=== PATIENT | female | born 1930 | race Caucasian/White ===

== ENCOUNTER 2016-07-19 05:59 | Day surgery (SDC) | payer MEDICARE ==
[~2016-07-19] VITALS: Ht 152.4 cm; Wt 60.9 kg
[~2016-07-19 05:59] MED LIST: APIX2.5T PO; ATOR20TA15 PO; BUME1TAB PO; CARV6.25 PO; DILT120C9 PO; FURO40TA PO; IMIP10 PO; LACTCAP8 PO; LISI-519 PO; MAGN400T2 PO; METO2.5T PO; NEXI20CA PO; POTA10CA PO
[2016-07-19 06:45] VITALS: BP 164/85; PULSE 72; RESP 20; TEMP 97.6; O2SAT 95
[2016-07-19] MEDS ORDERED: CARV6.252 PO (06:45)
[2016-07-19] MEDS ORDERED: SODIUM CHLORIDE 0.9% 1000 ML IV SCH (07:00)
[2016-07-19] MEDS ORDERED: ceFAZolin 2 GM PREMIX 50 ML - implanted port removal IV SCH (07:00)
[2016-07-19 07:32] LABS: AUTOMATED NEUTROPHIL # 2.9 TH/MM3 (1.8-7.7); BASOPHIL % 0.7 % (0.0-2.0); EOSINOPHIL # 0.2 TH/MM3 (0-0.4); EOSINOPHIL % 3.5 % (0.0-4.0); HEMATOCRIT 36.7 % (35.0-46.0); HEMO FLAGS DIFF FINAL; LYMPH % 28.3 % (9.0-44.0); LYMPHOCYTE # 1.6 TH/MM3 (1.0-4.8); MEAN CELL VOLUME 87.2 FL (80.0-100.0); MEAN CORPUSCULAR HEMOGLOBIN 29.7 PG (27.0-34.0); MEAN CORPUSCULAR HGB CONC 34.1 % (32.0-36.0); NEUT % 51.5 % (16.0-70.0); PLATELET COUNT 177 TH/MM3 (150-450); RED BLOOD COUNT 4.21 MIL/MM3 (4.00-5.30); RED CELL DISTRIBUTION WIDTH 13.6 % (11.6-17.2); WHITE BLOOD COUNT 5.7 TH/MM3 (4.0-11.0)
[2016-07-19 08:16] LABS: INTERNATIONAL NORMALIZED RATIO 0.9 RATIO; PROTHROMBIN TIME - PATIENT 10.4 SEC (9.8-11.6)
[2016-07-19 08:17] LABS: APTT (PATIENT) 23.6 SEC (24.3-30.1)
[2016-07-19] MEDS ORDERED: LIDOCAINE 1%/EPINEPHrine 1:100,000 SOLN 20 ML VIAL ONE (08:26)
[2016-07-19] MEDS ORDERED: MIDAZOLAM HCL 5 MG/5 ML VIAL ONE (08:32)
[2016-07-19] MEDS ORDERED: fentaNYL CITRATE 250 MCG/5 ML AMP ONE (08:32)
--- NOTE | 2016-07-19 08:59 | PD.RAD ---
Post Procedure Progress Note Pre Procedure Diagnosis: (1) Cardiomyopathy Post Procedure Diagnosis: (1) Cardiomyopathy Procedure Date: Jul 19, 2016 Supervising Radiologist: Ronak Interiano Proceduralist/Assist: Paola Hollins RT(R), RT Yoanthan(R)() Anesthesia: Conscious Sedation Plan of Activity Patient to Unit: PACU See PACS Report for procedural detail/treatment Central Venous Access Device Procedure 1 Right Internal Jugular Infusaport Removal single lumen Ronak Interiano MD Jul 19, 2016 08:59
[2016-07-19 09:00] VITALS: BP 115/66; PULSE 53; RESP 20; TEMP 97.9; O2SAT 97
[2016-07-19] MEDS ORDERED: SODIUM CHLORIDE 0.9% FLUSH 5 ML FLUSH IVF PRN (09:00)
[2016-07-19 09:15] VITALS: BP 122/65; PULSE 69; RESP 20; O2SAT 96
--- NOTE | 2016-07-19 09:23 | RADRPT ---
EXAM DATE/TIME: 07/19/2016 07:36 [facility] COMPARISON: No previous studies available for comparison. INDICATIONS : Patient with history of Hodgkin's lymphoma in need of port removal. MEDICAL HISTORY : 1.CHF 2.AFIB 3.HTN 4.Diverticulosis 5.Lymphoma 6.Sleep apnea 7.GERD 8.Arthritis 9.Osteoporosis SURGICAL HISTORY : 1.Cataract Surgery 2.Cardiac stent 3.Colostomy 4.Right hip replacement 5.Left hip replacement 6.Cholectomy ENCOUNTER: Initial ACUITY: > 1 year PAIN SCORE: 0/10 SEDATION TIME: 30 minutes 1.) 3 mg midazolam (Versed) IV 2.) 150 mcg fentanyl (Sublimaze) IV Prophylactic antibiotics were administered with appropriate pre-procedure timing. Vancomycin within 2 hrs of procedure, Ancef (or alternative) within 1 hr of procedure. PROCEDURE : 1. Removal of Gmhkpe-g-voib. 2. Conscious sedation with continuous EKG and oximetry monitoring. The risk, benefits and potential complications of Ijoxja-h-Kpni removal were discussed. Written conse nt was obtained. The patient was placed supine. The chest wall was prepped in sterile fashion. Full sterile techniqu e was used, including cap, mask, sterile gloves and gown, and a large sterile sheet. Hand hygiene an d 2% chlorhexidine and/or Betadine/alcohol prep was utilized per protocol for cutaneous antisepsis. The skin and subcutaneous tissues were infiltrated with local anesthetic solution. A small incision w as made, the subcutaneous pocket was opened. The port was dissected from the subcutaneous tissues and easily removed in one piece. The pocket incision was closed with subcuticular Vicryl suture. Steri -Strips were applied. Conscious sedation was performed with the prescribed dosages and duration as above. The patient tole rated the procedure well and there were no complications. EKG and oximetry remained stable throughou t the procedure. The patient was sent to post anesthesia recovery in stable condition. CONCLUSION: Uncomplicated port removal as above. Ronak Interiano MD on July 19, 2016 at 9:22 Board Certified Radiologist. This report was verified electronically.
[2016-07-19 09:45] VITALS: BP 113/62; PULSE 61; RESP 20; O2SAT 96
[2016-07-19 10:15] VITALS: BP 116/73; PULSE 61; RESP 20; O2SAT 95
== END 2016-07-19 11:20 | disposition home or self-care (01) ==
LOC: HROP 05:59 → HRIP 06:37 → HROP 11:20
PROVIDERS: ATTEND Internal Medicine Hematology & Oncology
DX: Z45.2 Encounter for adjustment and management of vascular access device (principal); I11.0 Hypertensive heart disease with heart failure; I50.9 Heart failure, unspecified; Z85.71 Personal history of Hodgkin lymphoma
CPT/HCPCS: 36590; 85025; 85610; 85730; 99152; 99153; J0690; J2250; J3010; J7030

== ENCOUNTER 2016-08-27 08:12 | Day surgery (SDC) | payer MEDICARE ==
[~2016-08-27 08:12] MED LIST changes: -CARV6.25 PO; +CARV6.252 PO
[2016-08-27 08:43] VITALS: BP 130/73; PULSE 68; RESP 20; TEMP 97.9; O2SAT 95
--- NOTE | 2016-08-27 16:48 | RADRPT ---
EXAM DATE/TIME: 08/27/2016 00:00 [facility] COMPARISON : No previous studies available for comparison. INDICATIONS : S/P PORT REMOVAL, SITE CHECK OBJECTIVE: Temperature: 97.9 Heart Rate: 68 Blood Pressure: 130/73 Respiratory: 20 Oximetry: 95 PNEUMONIA VACCINE: HISTORY OF PRESENT ILLNESS: 86-year-old female who had her port removed July 19. Reports drainage. Denies fever and chills. PAST MEDICAL HISTORY : 1. Osteoarthritis. 2. Congestive heart failure. 3. Hypercholesterolemia. 4. Gastroesophageal reflux disease. 5. Cardiovascular disease. 6. Hypertension. 7. AFIB PAST SURGICAL HISTORY : 1. Cholecystectomy. 2. Coronary artery stent. 3. Appendectomy. 4. COLOSTOMY 5. DEVONTE HIP REPLACE SOCIAL HISTORY : ALLERGIES: Cipro 1. Eliquis (Apixaban) 2.5 mg b.i.d. 2. Coreg (Carvedilol) 6.25 mg b.i.d. 3. DILTIAZEM 120 mg q.d. 4. ATORVASTATIN 20 mg q.d. 5. Lasix (Furosemide)40 mg q.d. 6. Prinivil (Lisinopril)5 mg q.d. PHYSICAL EXAMINATION: General: Patient is sitting comfortably. In no acute distress. Chest: There is erythema surrounding the incision site from the port removal. The wound is approximated. No mass. Compression on the site generates a small discharge purulent material from the lateral margin o f the incision site. ASSESSMENT: Infection at the port removal site. PLAN: The patient was given a prescription for oral Keflex. She was instructed to start the antibiotic toda y. She'll return on Tuesday for a repeat site check. She was instructed to call sooner if any issue s arise. TIME SPENT: <15 minutes Christian Silva Jr., MD on August 27, 2016 at 16:37 Board Certified Radiologist. This report was verified electronically.
== END 2016-08-27 08:55 | disposition home or self-care (01) ==
LOC: HROP 08:12 → HRIP 08:16 → HROP 08:55
PROVIDERS: ATTEND Internal Medicine Hematology & Oncology
DX: Z45.2 Encounter for adjustment and management of vascular access device (principal)
CPT/HCPCS: 99212; G0463

== ENCOUNTER 2016-09-01 08:39 | Day surgery (SDC) | payer MEDICARE ==
[2016-09-01 08:59] VITALS: BP 119/70; PULSE 49; RESP 20; TEMP 97.5; O2SAT 94
== END 2016-09-01 09:15 | disposition home or self-care (01) ==
LOC: HROP 08:39 → HRIP 08:43 → HROP 09:15
PROVIDERS: ATTEND Radiology Body Imaging
DX: Z45.2 Encounter for adjustment and management of vascular access device (principal)
CPT/HCPCS: 99211; G0463

== ENCOUNTER 2017-02-22 07:28 | Inpatient (IN) | payer MEDICARE ==
[~2017-02-22] VITALS: Ht 152.4 cm; Wt 65.3 kg
[2017-02-22] VITALS (11 sets, daily range): BP systolic 124–174; BP diastolic 79–100; PULSE 85–147; RESP 20–46; TEMP 92–98.3; O2SAT 88–95
--- NOTE | 2017-02-22 07:41 | PD ---
HPI Chief Complaint: Respiratory Symptoms Time Seen by Provider: 07:35 Travel History International Travel<30 days: No Contact w/Intl Traveler<30days: No Traveled to known affect area: No History of Present Illness HPI 86yo F with PMH of lymphoma s/p treatment cancer free since 2014, afib on eliquis, CHF here with c/o sob since this morning. She also felt a little chest pain along with her sob that is midsternal and nonradiating. +Cough. Denies any fever, n/v, abdominal pain, focal weakness or numbness. Pt was taken off oral diltiazem because her blood pressure was low. [employer] is Dr. Duong. [facility] Past Medical History Hx Anticoagulant Therapy: Yes (ELIQUIS, ) Arthritis: Yes Asthma: No Atrial Fibrillation: Yes Heart Rhythm Problems: Yes (A-fib) Cancer: Yes (LYMPHOMA ) Cardiovascular Problems: Yes (HYPOTENSION, A-FIB, CHF ) High Cholesterol: Yes Chemotherapy: Yes (2015; [facility]) Chest Pain: Yes Congestive Heart Failure: Yes Diabetes: No Endocrine: No Gastrointestinal Disorders: Yes (COLOSTOMY, DIVERTICULOSIS) GERD: Yes Genitourinary: No Hiatal Hernia: No Hypertension: Yes Immune Disorder: No Musculoskeletal: Yes Neurologic: No Psychiatric: No Reproductive: No Respiratory: Yes Immunizations Current: Yes Radiation Therapy: No Sleep Apnea: Yes Thyroid Disease: No Ulcer: No Past Surgical History Abdominal Surgery: Yes (COLECTOMY, COLOSTOMY, APPY CHOLECYSTECTOMY) AICD: No Cardiac Surgery: Yes (CARDIAC STENTS PLACED) Ear Surgery: No Endocrine Surgery: No Eye Surgery: Yes (CATARACT SURGERY) Genitourinary Surgery: No Gynecologic Surgery: No Joint Replacement: Yes (RIGHT HIP REPLACEMENT X 4, LEFT HIP X 1) Oral Surgery: No Pacemaker: No Thoracic Surgery: No Other Surgery: Yes (POWER PORT) Social History Alcohol Use: No Tobacco Use: No Substance Use: No Allergies-Medications (Allergen,Severity, Reaction): Coded Allergies: ciprofloxacin (Unverified Allergy, Severe, HALLUCINATIONS, 02/22/17) *MDRO Multi-Drug Resistant Organism (Verified Adverse Reaction, Unknown, ) 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 Reported Meds & Prescriptions Reported Meds & Active Scripts Active Reported Carvedilol 6.25 Mg Tab 6.25 Mg PO BID Probiotic (Lactobacillus Acidophilus) 1 Cap Cap 1 Cap PO DAILY Magnesium Oxide 400 Mg Tab 400 Mg PO DAILY Potassium Chloride ER (Potassium Chloride) 10 Meq Cap 10 Meq PO DAILY Furosemide 40 Mg Tab 40 Mg PO DAILY Lisinopril 5 Mg Tab 5 Mg PO DAILY Eliquis (Apixaban) 2.5 Mg Tab 2.5 Mg PO BID Nexium (Esomeprazole DR) 20 Mg Capdr 20 Mg PO BID Atorvastatin (Atorvastatin Calcium) 20 Mg Tab 20 Mg PO HS Review of Systems Except as stated in HPI: all other systems reviewed are Neg Physical Exam Narrative GENERAL: 86yo F in moderate distress. SKIN: Focused skin assessment warm/dry. HEAD: Atraumatic. Normocephalic. EYES: Pupils equal and round. No scleral icterus. No injection or drainage. CARDIOVASCULAR: Irregular rate and rhythm. No murmur appreciated. RESPIRATORY: No accessory muscle use. Mild bibasilar crackles. Breath sounds equal bilaterally. GASTROINTESTINAL: Abdomen soft, non-tender, nondistended. No rebound tenderness or guarding. MUSCULOSKELETAL: No obvious deformities. No clubbing. No cyanosis. Trace lower ext edema. No calf tenderness. NEUROLOGICAL: Awake and alert. No obvious cranial nerve deficits. Motor grossly within normal limits. Normal speech. PSYCHIATRIC: Appropriate mood and affect; insight and judgment normal. Data Data Last Documented VS Vital Signs Date Time Temp Pulse Resp B/P (MAP) Pulse Ox O2 Delivery O2 Flow Rate FiO2 02/22/17 08:48 92 24 154/83 (106) 93 Nasal Cannula 2.00 02/22/17 07:42 92.0 Orders Orders Diltiazem Inj (Cardizem Inj) (02/22/17 07:45) Complete Blood Count With Diff (02/22/17 07:37) Basic Metabolic Panel (Bmp) (02/22/17 07:37) B-Type Natriuretic Peptide (02/22/17 07:37) Act Partial Throm Time (Ptt) (02/22/17 07:37) Prothrombin Time / Inr (Pt) (02/22/17 07:37) Magnesium (Mg) (02/22/17 07:37) Troponin I (02/22/17 07:37) Iv Access Insert/Monitor (02/22/17 07:37) Ecg Monitoring (02/22/17 07:37) Oximetry (02/22/17 07:37) Oxygen Administration (02/22/17 07:37) Chest, Single Ap (02/22/17 07:37) Sodium Chloride 0.9% Flush (Ns Flush) (02/22/17 07:45) Furosemide Inj (Lasix Inj) (02/22/17 09:00) Labs Laboratory Tests Test 02/22/17 07:45 White Blood Count 9.9 TH/MM3 Red Blood Count 4.13 MIL/MM3 Hemoglobin 12.7 GM/DL Hematocrit 38.6 % Mean Corpuscular Volume 93.5 FL Mean Corpuscular Hemoglobin 30.8 PG Mean Corpuscular Hemoglobin Concent 33.0 % Red Cell Distribution Width 14.3 % Platelet Count 194 TH/MM3 Mean Platelet Volume 9.6 FL Neutrophils (%) (Auto) 64.3 % Lymphocytes (%) (Auto) 21.4 % Monocytes (%) (Auto) 12.6 % Eosinophils (%) (Auto) 1.1 % Basophils (%) (Auto) 0.6 % Neutrophils # (Auto) 6.4 TH/MM3 Lymphocytes # (Auto) 2.1 TH/MM3 Monocytes # (Auto) 1.2 TH/MM3 Eosinophils # (Auto) 0.1 TH/MM3 Basophils # (Auto) 0.1 TH/MM3 CBC Comment DIFF FINAL Differential Comment Prothrombin Time 10.7 SEC Prothromb Time International Ratio 1.0 RATIO Activated Partial Thromboplast Time 21.4 SEC Blood Urea Nitrogen 36 MG/DL Creatinine 1.58 MG/DL Random Glucose 149 MG/DL Calcium Level 9.5 MG/DL Magnesium Level 2.0 MG/DL Sodium Level 142 MEQ/L Potassium Level 5.0 MEQ/L Chloride Level 107 MEQ/L Carbon Dioxide Level 24.1 MEQ/L Anion Gap 11 MEQ/L Estimat Glomerular Filtration Rate 31 ML/MIN Troponin I LESS THAN 0.02 NG/ML B-Type Natriuretic Peptide 960 PG/ML MDM Medical Decision Making Medical Screen Exam Complete: Yes Emergency Medical Condition: Yes Interpretation(s) EKG: Afib RVR 151 bpm. LAD. PVC. Differential Diagnosis Afib RVR vs. Pneumonia vs. CHF vs. ACS Narrative Course 86yo F with afib on eliquis here with c/o sob this morning. It was associated with some chest discomfort. Pt found to be in afib RVR in the 150s in the ED. Pt's blood pressure was 149/100 so cardizem 15mg IV was given. Heart rate came down to 90s and pt was feeling better. Pt was hypoxic on room air at 88% so 2L nasal cannula was placed. Pt saturating at 92% on 2L and usually does not use oxygen at home. Labs reviewed, no leukocytosis. Troponin negative. BNP is elevated at 960. Creatinine mildly elevated at 1.58 from baseline. CXR showed cardiomegaly with mild pulmonary vascular congestion. Mild bibasilar airspace disease. Pt given lasix 40mg IV here. Pt reevaluated at bedside and feels better. Pt taken off oxygen and is still hypoxic at 88% on RA while at rest. Heart rate has been controlled after only 15mg of cardizem. Discussed with resident physician and accepted to their service. Critical Care Narrative Aggregate critical care time was 40 minutes. Time to perform other separately billable procedures was not included in the critical care time. My time did not include minutes spent treating any other patients simultaneously or on activities that did not directly contribute to the patient's treatment. The services I provided to this patient were to treat and/or prevent clinically significant deterioration that could result in: cardiovascular collapse or . I provided critical care services requiring my management, as noted below: Chart data review, documentation time, medication orders and management, vital sign assessments/reviewing monitor data, ordering and reviewing lab tests, ordering and interpreting/reviewing x-rays and diagnostic studies, care of the patient and discussion of the patient with the admitting physicians. Diagnosis Primary Impression: CHF exacerbation Qualified Codes: I50.9 - Heart failure, unspecified Additional Impression: Atrial fibrillation with rapid ventricular response Admitting Information Admitting Physician Requests: Nasra Monet DO Feb 22, 2017 07:41
[2017-02-22] MEDS ORDERED: DILTIAZEM HCL 25 MG/5 ML VIAL IV ONE (07:45)
[2017-02-22] MEDS ORDERED: SODIUM CHLORIDE 0.9% FLUSH 10 ML FLUSH IVF PRN (07:45)
[2017-02-22 08:01] LABS: AUTOMATED NEUTROPHIL # 6.4 TH/MM3 (1.8-7.7); BASOPHIL # 0.1 TH/MM3 (0-0.2); BASOPHIL % 0.6 % (0.0-2.0); EOSINOPHIL # 0.1 TH/MM3 (0-0.4); EOSINOPHIL % 1.1 % (0.0-4.0); HEMATOCRIT 38.6 % (35.0-46.0); HEMO FLAGS DIFF FINAL; LYMPH % 21.4 % (9.0-44.0); LYMPHOCYTE # 2.1 TH/MM3 (1.0-4.8); MEAN CELL VOLUME 93.5 FL (80.0-100.0); MEAN CORPUSCULAR HEMOGLOBIN 30.8 PG (27.0-34.0); MONO % 12.6 % (0.0-8.0); NEUT % 64.3 % (16.0-70.0); PLATELET COUNT 194 TH/MM3 (150-450); RED BLOOD COUNT 4.13 MIL/MM3 (4.00-5.30); RED CELL DISTRIBUTION WIDTH 14.3 % (11.6-17.2); WHITE BLOOD COUNT 9.9 TH/MM3 (4.0-11.0)
[2017-02-22 08:11] LABS: APTT (PATIENT) 21.4 SEC (24.3-30.1); PROTHROMBIN TIME - PATIENT 10.7 SEC (9.8-11.6)
[2017-02-22 08:19] LABS: ANION GAP 11 MEQ/L (5-15); BICARBONATE 24.1 MEQ/L (21.0-32.0); BLOOD UREA NITROGEN 36 MG/DL (7-18); CHLORIDE 107 MEQ/L (98-107); GLOMERULAR FILTRATION RATE 31 ML/MIN (>89); SODIUM (NA) 142 MEQ/L (136-145)
--- NOTE | 2017-02-22 08:25 | RADRPT ---
EXAM DATE/TIME: 02/22/2017 08:04 [facility] COMPARISON: CHEST SINGLE AP, March 30, 2016, 9:08. INDICATIONS : Short of breath. Patient c/o difficulty breathing. MEDICAL HISTORY : Gastroesophageal reflux disease. Hypercholesterolemia. CHF, Hodgkins lymphoma,Hypertension, A-Fi b. SURGICAL HISTORY : Appendectomy. Cholecystectomy. Bilateral hip replacement, colostomy. ENCOUNTER: Initial ACUITY: 1 day PAIN SCORE: 0/10 LOCATION: Bilateral chest FINDINGS: Enlarged cardiac silhouette with indistinct central pulmonary vasculature. Mild diffuse interstitial prominence and minimal bibasilar airspace disease. Prominent degenerative changes about the shoulders . Remainder of the exam is unchanged. CONCLUSION: 1. Cardiomegaly with mild pulmonary vascular congestion. 2. Mild bibasilar airspace disease, likely atelectasis. Jose Henderson MD on February 22, 2017 at 8:22 Board Certified Radiologist. This report was verified electronically.
[2017-02-22] MEDS ORDERED: FUROSEMIDE 40 MG/4 ML VIAL IV PUSH ONE (09:00)
--- NOTE | 2017-02-22 09:27 | HHI.HP ---
[facility] Service Family Medicine Primary Care Physician Fatou Johnson MD Admission Diagnosis CHF exacerbation, afib RVR Diagnoses: International Travel<30 Days: No Contact w/Intl Traveler<30days: No Known Affected Area: No History of Present Illness 86-year-old female, past medical history of atrial fibrillation and CHF, presents with shortness of breath since 12 AM today. Patient awoke from sleep with shortness of breath that was not alleviated by position. The shortness of breath continued until 7 AM and she started feeling chest pressure at that time. Patient states the chest pressure was nonpainful, covering her entire chest, and alleviated after short period of time (within 1 hour). Her daughter brought her into the ER immediately with chest pressure began. The patient states she has noticed that she has had dry coughing over the last 3 weeks. This cough has been occurring while she is laying down at night. The cough is nonproductive, and not associated with congestion, fever, or any other symptoms. Patient did fill an episode similar to this episode of shortness of breath one year ago at the [facility]. Patient denies any palpitations or current chest pain. Patient admits to episodes of dizziness over the last month however this is closely associated with being out in the heat for long periods of time. Patient states her CHF and A. 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 Patient denies fever/chills. She denies any current chest pain/shortness of breath/dizziness. (Diane Worrell MD R2) Review of Systems Constitutional: DENIES: Fatigue, Fever Endocrine: DENIES: Heat/cold intolerance, Polydipsia Eyes: DENIES: Eye inflammation, Eye pain Ears, nose, mouth, throat: DENIES: Vertigo, Throat pain Respiratory: DENIES: Wheezing, Hemoptysis Gastrointestinal: DENIES: Bloody stools, Constipation Genitourinary: DENIES: Dysmenorrhea, Dyspareunia Musculoskeletal: DENIES: Stiffness, Joint Swelling Integumentary: DENIES: Rash Neurologic: DENIES: Headache, Seizures (Diane Worrell MD R2) Past Family Social History Past Medical History lymphoma s/p treatment cancer free since 2014 - oncologist (last appt last week) afib on eliquis - Afibb diagnosed s/p hip operation in 2015, f/u by CHF - diagnosed in 2015, 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 - 2013 s/p diverticulitis , no plans for re-anastamosis Osteoarthritis: worst at shoulder joints, also knee and hip x 5 - no complications Past Surgical History cholostomy s/p diverticulitis 2013 hip surgery 1 year ago (revision 2016) multiple hip surgeries 8 yrs ago s/p fall (4 on R hip, 1 left hip) - fx of femur involved per pt (Diane Worrell MD R2) Allergies: Coded Allergies: ciprofloxacin (Unverified Allergy, Severe, HALLUCINATIONS, 02/22/17) *MDRO Multi-Drug Resistant Organism (Verified Adverse Reaction, Unknown, ) 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 Family History father - unsure heart disease in his 90s mother - none - both lived until 90 y/o Social History denies x 3 lives with daughter (Diane Worrell MD R2) Physical Exam Vital Signs Vital Signs Date Time Temp Pulse Resp B/P (MAP) Pulse Ox O2 Delivery O2 Flow Rate FiO2 02/22/17 08:48 92 24 154/83 (106) 93 Nasal Cannula 2.00 02/22/17 07:43 92 Nasal Cannula 3.00 02/22/17 07:43 109 24 92 Nasal Cannula 3.00 02/22/17 07:42 92.0 109 24 150/98 (115) Nasal Cannula 3.00 02/22/17 07:31 97.4 147 26 149/100 (116) 02/22/17 07:30 46 88 Room Air Physical Exam GENERAL: This is a well-nourished, well-developed patient, in no apparent distress, laying in bed, no respiratory distress SKIN: No rashes, ecchymoses or lesions. Cool and dry. HEAD: Atraumatic. Normocephalic. No temporal or scalp tenderness. EYES: Pupils equal round and reactive. Extraocular motions intact. No scleral icterus. No injection or drainage. ENT: Nose without bleeding, purulent drainage or septal hematoma. Throat without erythema, tonsillar hypertrophy or exudate. Uvula midline. Airway patent. NECK: Trachea midline. No JVD or lymphadenopathy. Supple, nontender, no meningeal signs. CARDIOVASCULAR: irregular rate and rhythm , gallops, or rubs. RESPIRATORY: Clear to auscultation. Breath sounds equal bilaterally. No wheezes , rales, or rhonchi. GASTROINTESTINAL: Abdomen soft, non-tender, nondistended. No hepato-splenomeg monalisa, or palpable masses. No guarding. Cholostomy bag is in place. MUSCULOSKELETAL: Extremities without clubbing, cyanosis, or edema. No joint tenderness, effusion, or edema noted. No calf tenderness. Negative Homans sign bilaterally. NEUROLOGICAL: Awake and alert. Cranial nerves II through XII intact. Motor and sensory grossly within normal limits. Five out of 5 muscle strength in all muscle groups. Normal speech. Laboratory Laboratory Tests Test 02/22/17 07:45 White Blood Count 9.9 Red Blood Count 4.13 Hemoglobin 12.7 Hematocrit 38.6 Mean Corpuscular Volume 93.5 Mean Corpuscular Hemoglobin 30.8 Mean Corpuscular Hemoglobin Concent 33.0 Red Cell Distribution Width 14.3 Platelet Count 194 Mean Platelet Volume 9.6 Neutrophils (%) (Auto) 64.3 Lymphocytes (%) (Auto) 21.4 Monocytes (%) (Auto) 12.6 Eosinophils (%) (Auto) 1.1 Basophils (%) (Auto) 0.6 Neutrophils # (Auto) 6.4 Lymphocytes # (Auto) 2.1 Monocytes # (Auto) 1.2 Eosinophils # (Auto) 0.1 Basophils # (Auto) 0.1 CBC Comment DIFF FINAL Differential Comment Prothrombin Time 10.7 Prothromb Time International Ratio 1.0 Activated Partial Thromboplast Time 21.4 Blood Urea Nitrogen 36 Creatinine 1.58 Random Glucose 149 Calcium Level 9.5 Magnesium Level 2.0 Sodium Level 142 Potassium Level 5.0 Chloride Level 107 Carbon Dioxide Level 24.1 Anion Gap 11 Estimat Glomerular Filtration Rate 31 Troponin I LESS THAN 0.02 B-Type Natriuretic Peptide 960 (Diane Worrell MD R2) Result Diagram: 02/22/1745 02/22/1745 Caprini VTE Risk Assessment Caprini VTE Risk Assessment: No/Low Risk (score <= 1) Caprini Risk Assessment Model Point Value = 1 Point Value = 2 Point Value = 3 Point Value = 5 Age 41-60 Minor surgery BMI > 25 kg/m2 Swollen legs Varicose veins or History of unexplained or recurrent spontaneous Oral contraceptives or hormone replacement Sepsis (< 1 month) Serious lung disease, including pneumonia (< 1 month) Abnormal pulmonary function Acute myocardial infarction Congestive heart failure (< 1 month) History of inflammatory bowel disease Medical patient at bed rest Age 61-74 Arthroscopic surgery Major open surgery (> 45 min) Laparoscopic surgery (> 45 min) Malignancy Confined to bed (> 72 hours) Immobilizing plaster cast Central venous access Age >= 75 History of VTE Family history of VTE Factor V Leiden Prothrombin [id number] Lupus anticoagulant Anticardiolipin antibodies Elevated serum homocysteine Heparin-induced thrombocytopenia Other congenital or acquired thrombophilia Stroke (< 1 month) Elective arthroplasty Hip, pelvis, or leg fracture Acute spinal cord injury (< 1 month) Prophylaxis Regimen Total Risk Factor Score Risk Level Prophylaxis Regimen 0-1 Low Early ambulation 2 Moderate Order ONE of the following: *Sequential Compression Device (SCD) *Heparin 5000 units SQ BID 3-4 Higher Order ONE of the following medications: *Heparin 5000 units SQ TID *Enoxaparin/Lovenox 40 mg SQ daily (WT < 150 kg, CrCl > 30 mL/min) *Enoxaparin/Lovenox 30 mg SQ daily (WT < 150 kg, CrCl > 10-29 mL/min) *Enoxaparin/Lovenox 30 mg SQ BID (WT < 150 kg, CrCl > 30 mL/min) AND/OR *Sequential Compression Device (SCD) 5 or more Highest Order ONE of the following medications: *Heparin 5000 units SQ TID (Preferred with Epidurals) *Enoxaparin/Lovenox 40 mg SQ daily (WT < 150 kg, CrCl > 30 mL/min) *Enoxaparin/Lovenox 30 mg SQ daily (WT < 150 kg, CrCl > 10-29 mL/min) *Enoxaparin/Lovenox 30 mg SQ BID (WT < 150 kg, CrCl > 30 mL/min) AND *Sequential Compression Device (SCD) (Diane Worrell MD R2) Assessment and Plan Assessment and Plan 86 y/o F, hx of Afibb on Eliquis, presenting in Afibb with RVR vs. CHF Code Status full code (Diane Worrell MD R2) Attending Attestation Patient seen and examined. Case reviewed and discussed with the resident team. Agree with plan of care as discussed with me and documented in the resident note. pt seen in ED with her daughter. she was improved once her heart rate was lower. appreciate help of Cardiology with [facility] control as she is their pt for years (Kenya Cates MD) Problem List: (1) Congestive heart failure ICD Codes: I50.9 - Heart failure, unspecified Status: Chronic Plan: History of CHF diagnosed in 2016. Patient has been following up with lens and [employer] prescription clerk Dr. Duong and says that her CHF has been well controlled. However today Patient presented complaining of chest pain and shortness of breath. Decreased breath sounds on exam and O2 sats on room air 88-100 - Creatinine 1.58, troponin less than 0.02, BNP 960 - Patient appears to have acute on chronic CHF - Last echo in the fall showed an EF of 25-30% - Follow up cardio recommendations; beta shauna, low-dose ALLEN inhibitor (as BP tolerates) - Continue carvedilol 6.25 twice a day - Continue lisinopril 5 daily - Continue furosemide 40 daily and potassium chloride 10 daily (2) Atrial fibrillation with rapid ventricular response ICD Codes: I48.91 - Unspecified atrial fibrillation Status: Acute Plan: History of A. fib followed up with [employer] prescription clerk Dr. Duong. Patient was recently having some difficulties with hypertension and diltiazem was discontinued. She presented to ED in A. fib with RVR in the 150s. Blood pressure was 149/100 so Cardizem 15 IV was given -Troponin less than 0.022 - Consult cardiology; done. - Follow up cardiology recs; ties and is not a long-term option. Amiodarone to be started. Continue Eliquis. Continue low-dose beta shauna as noted above for heart failure - Continue Eliquis 2.5 twice a day - Continue carvedilol 6.25 twice a day (3) Elevated serum creatinine ICD Codes: R79.89 - Other specified abnormal findings of blood chemistry Status: Acute Plan: Creatinine up to 1.58 today (see up from baseline per previous notes) - Follow-up BUN/creatinine in a.m. (4) GERD (gastroesophageal reflux disease) ICD Codes: K21.9 - Gastro-esophageal reflux disease without esophagitis Status: Chronic Plan: Continue Nexium 20 twice a day (5) Colostomy care ICD Codes: Z43.3 - Encounter for attention to colostomy Status: Chronic Plan: Continue lactobacillus daily (6) FEN/PPX Status: Chronic Plan: Fluids: Continue by mouth fluid Electrolytes: Magnesium oxide 400 daily, serum chloride 10 daily Nutrition: Heart healthy diet GI ppx: Protonix, Tums chewables DVT ppx: Eliquis, SCDs (Diane Worrell MD R2) Physician Certification 2 Midnight Certification Type: Admission for Inpatient Services Order for Inpatient Services The services are ordered in accordance with Medicare regulations or non- Medicare payer requirements, as applicable. In the case of services not specified as inpatient-only, they are appropriately provided as inpatient services in accordance with the 2-midnight benchmark. Estimated LOS (days): 2 days is the estimated time the patient will need to remain in the hospital, assuming treatment plan goals are met and no additional complications. Post-Hospital Plan: Home (Diane Worrell MD R2) Problem Qualifiers (1) Congestive heart failure: Qualified Codes: I50.9 - Heart failure, unspecified (2) GERD (gastroesophageal reflux disease): Qualified Codes: K21.9 - Gastro-esophageal reflux disease without esophagitis Diane Worrell MD R2 Feb 22, 2017 09:27 Kenya Cates MD Feb 23, 2017 14:05
[2017-02-22] MEDS ORDERED: SODIUM CHLORIDE 0.9% FLUSH 10 ML FLUSH IV FLUSH PRN ×2 (09:30→09:45)
[2017-02-22] MEDS ORDERED: DILTIAZEM INJ 125 MG in SODIUM CHLORIDE 0.9% INJ 100 ML IV PRN (09:45)
[2017-02-22] MEDS: SODIUM CHLORIDE 0.9% FLUSH 10 ML FLUSH IV FLUSH SCH ×2 (10:11→22:37)
[2017-02-22] MEDS: APIXABAN 2.5 MG TABLET PO SCH ×2 (10:45→22:37)
[2017-02-22] MEDS: LISINOPRIL 5 MG TAB PO SCH (10:45)
[2017-02-22] MEDS ORDERED: ONDANSETRON HCL 4 MG/2 ML VIAL IV PRN (12:00)
[2017-02-22] MEDS ORDERED: CALCIUM CARBONATE 500 MG CHEWABLE TAB CHEW PRN (13:00)
[2017-02-22] MEDS ORDERED: ACETAMINOPHEN 325 MG TAB PO PRN (13:00)
[2017-02-22] MEDS ORDERED: RESP: ALBUTEROL 2.5 MG/IPRATROPIUM 0.5 MG NEB (PRN) NEB (13:00)
[2017-02-22] MEDS ORDERED: AMIODARONE INJ 150 MG in DEXTROSE 5% IN WATER 100ML INJ 100 ML IV ONE ×4 (13:28→14:15)
[2017-02-22] MEDS ORDERED: AMIODARONE INJ 450 MG in DEXTROSE 5% IN WATE(EXCEL) INJ 241 ML IV SCH ×4 (13:38→14:00)
--- NOTE | 2017-02-22 14:06 | MB ---
cc: CECILE BAIRD MD DATE OF CONSULTATION: 02/22/2017 REASON FOR CONSULTATION Atrial fibrillation with rapid ventricular rate. HISTORY OF PRESENT ILLNESS Ms. Kramer is an 86-year-old patient of my partner, Dr. Duong, who does have a history of atrial fibrillation and lower extremity edema. The patient recently was having some difficulties with hypotension and associated fatigue. Initially they tried cutting back for furosemide, however, her edema was too excessive so she was placed back on her usual dose of that. Subsequently her Cardizem was discontinued. She subsequently has had progressive shortness of breath and presented to the emergency room. The patient reports that she was not aware that her heart rate was racing. PAST MEDICAL HISTORY 1. Hypertension. 2. Hyperlipidemia. 3. Atrial fibrillation. 4. Lymphoma. 5. Diverticulitis with subsequent colostomy. 6. Osteoarthritis. 7. Multiple hip surgeries. ALLERGIES CIPRO. FAMILY HISTORY The patient is not sure of any heart disease. SOCIAL HISTORY The patient does not drink or smoke. REVIEW OF SYSTEMS Except as mentioned in the HPI all 12 systems are negative. PHYSICAL EXAMINATION VITAL SIGNS: 120, 24, 150/83. GENERAL: She is a well-appearing female in no apparent distress. NECK: Free from JVD. LUNGS: Decreased and clear to auscultation. CARDIOVASCULAR: She has an irregularly irregular tachycardic rhythm. No rubs or gallops are appreciated. ABDOMEN: Soft. EXTREMITIES: Free from edema. LABORATORY Lab values are significant for a creatinine of 1.58, troponin of less than 0.02, and a BNP of 960. TELEMETRY Telemetry shows atrial fibrillation with rapid ventricular rate. IMPRESSIONS/RECOMMENDATIONS 1. Atrial fibrillation: The patient does have some episodes of RVR. Her Cardizem was stopped for hypotension. She did receive some Cardizem in the emergency room which did get some initial heart rate control. However, she is again having difficulties with RVR. As her Cardizem is not really a viable long-term option I am going to start amiodarone. The patient will be continued on her Eliquis. Low-dose beta shauna will be added as she also has some heart failure. 2. Heart failure: This does appear to be an acute on chronic presentation. Her last echo in the Fall showed an EF of 25-30%. She will be on beta blockade and low-dose ALLEN inhibitor as her blood pressure tolerates. Shelly Escobar/SARAH /1:31 PM /1:54 PM
[2017-02-22] MEDS: PANTOPRAZOLE SOD 40 MG DELAYED RELEASE TAB PO SCH (15:57)
[2017-02-22 16:37] LABS: APTT (PATIENT) 25.9 SEC (24.3-30.1)
[2017-02-22 17:01] LABS: CREATINE KINASE 57 U/L (26-192)
[2017-02-22] MEDS ORDERED: SODIUM CHLORIDE 0.9% FLUSH 10 ML FLUSH IV FLUSH SCH (21:00)
[2017-02-22] MEDS: CARVEDILOL 6.25 MG TAB PO SCH (22:37)
[2017-02-22] MEDS: ATORVASTATIN 20 MG TAB PO SCH (22:37)
[2017-02-22 22:52] LABS: CREATINE KINASE 57 U/L (26-192)
[2017-02-23] VITALS (10 sets, daily range): BP systolic 105–135; BP diastolic 65–92; PULSE 80–114; RESP 18–20; TEMP 97.5–98.1; O2SAT 95–99
--- NOTE | 2017-02-23 07:09 | PD.CARD.PN ---
Subjective Subjective Remarks PT without complaints Objective Medications Current Medications Medications (Trade) Dose Ordered Sig/Deidra Route Start Time Stop Time Status Last Admin (NS Flush) 2 ml UNSCH PRN IVF 02/22/17 07:45 (NS Flush) 2 ml UNSCH PRN IV FLUSH 02/22/17 09:30 (NS Flush) 2 ml BID IV FLUSH 02/22/17 09:30 02/22/17 22:37 (Eliquis) 2.5 mg BID PO 02/22/17 10:00 02/22/17 22:37 (Lipitor) 20 mg HS PO 02/22/17 21:00 02/22/17 22:37 (Coreg) 6.25 mg BID PO 02/22/17 21:00 02/22/17 22:37 (Lasix) 40 mg DAILY PO 02/23/17 09:00 (Lactinex) 1 tab DAILY PO 02/23/17 09:00 (Prinivil) 5 mg DAILY PO 02/22/17 10:30 02/22/17 10:45 (Mag-Ox) 400 mg DAILY PO 02/23/17 09:00 (KCl) 10 meq DAILY PO 02/23/17 09:00 (Protonix) 40 mg DAILY PO 02/22/17 11:00 02/22/17 15:57 (Tylenol) 650 mg Q4H PRN PO 02/22/17 13:00 (Zofran Inj) 4 mg Q6H PRN IV 02/22/17 12:00 (Tums Chew) 1,000 mg TID PRN CHEW 02/22/17 13:00 (Duoneb Neb) 1 ampule Q6HR NEB PRN NEB 02/22/17 13:00 (Vistaril) 50 mg HS PRN PO 02/22/17 13:00 Amiodarone HCl 450 mg/Dextrose 250 ml @ 33 mls/hr [id number] IV 02/22/17 14:00 02/22/17 17:32 (Pneumovax-23 Inj) 25 mcg ONCE ONCE IM 02/23/17 09:00 02/23/17 09:01 Vital Signs / I&O Vital Signs Date Time Temp Pulse Resp B/P (MAP) Pulse Ox O2 Delivery O2 Flow Rate FiO2 02/23/17 04:00 97.5 80 20 117/78 (91) 95 02/23/17 00:00 97.6 89 20 105/72 (83) 95 02/22/17 22:40 Nasal Cannula 2.00 02/22/17 20:00 97.7 85 20 174/79 (110) 93 02/22/17 17:32 110 122/72 02/22/17 17:00 Nasal Cannula 2.00 02/22/17 16:23 121 20 124/79 (94) 02/22/17 16:17 121 02/22/17 16:00 98.3 110 20 141/98 (112) 92 02/22/17 15:57 106 126/71 02/22/17 11:49 93 02/22/17 10:46 02/22/17 10:40 97.5 98 20 135/89 (104) 95 02/22/17 09:34 93 Nasal Cannula 2.00 02/22/17 08:48 92 24 154/83 (106) 93 Nasal Cannula 2.00 02/22/17 07:43 92 Nasal Cannula 3.00 02/22/17 07:43 109 24 92 Nasal Cannula 3.00 02/22/17 07:42 92.0 109 24 150/98 (115) Nasal Cannula 3.00 02/22/17 07:31 97.4 147 26 149/100 (116) 02/22/17 07:30 46 88 Room Air I/O 02/22/17 02/22/17 02/22/17 02/23/17 02/23/17 02/23/17 07:00 15:00 23:00 07:00 15:00 23:00 Intake Total 360 ml 240 ml Output Total 200 ml Balance 360 ml 40 ml Intake Oral 360 ml 240 ml Output Urine Total 200 ml # Voids 3 1 # Bowel Movements 0 Physical Exam GENERAL: Well developed, well nourished. No acute distress. HEENT: Jugular venous pressure is normal. CHEST: Lungs decreased and clear to auscultation bilaterally. Unlabored respiratory effort. CARDIAC: Regular rate and rhythm without S3, S4, or murmur. ABDOMEN: Soft, nontender, no hepatosplenomegaly. Bowel sounds present. EXTREMITIES: tr edema. Laboratory Laboratory Tests Test 02/22/17 07:45 02/22/17 15:37 02/22/17 21:30 White Blood Count 9.9 TH/MM3 Red Blood Count 4.13 MIL/MM3 Hemoglobin 12.7 GM/DL Hematocrit 38.6 % Mean Corpuscular Volume 93.5 FL Mean Corpuscular Hemoglobin 30.8 PG Mean Corpuscular Hemoglobin Concent 33.0 % Red Cell Distribution Width 14.3 % Platelet Count 194 TH/MM3 Mean Platelet Volume 9.6 FL Neutrophils (%) (Auto) 64.3 % Lymphocytes (%) (Auto) 21.4 % Monocytes (%) (Auto) 12.6 % Eosinophils (%) (Auto) 1.1 % Basophils (%) (Auto) 0.6 % Neutrophils # (Auto) 6.4 TH/MM3 Lymphocytes # (Auto) 2.1 TH/MM3 Monocytes # (Auto) 1.2 TH/MM3 Eosinophils # (Auto) 0.1 TH/MM3 Basophils # (Auto) 0.1 TH/MM3 CBC Comment DIFF FINAL Differential Comment Prothrombin Time 10.7 SEC Prothromb Time International Ratio 1.0 RATIO Activated Partial Thromboplast Time 21.4 SEC 25.9 SEC Blood Urea Nitrogen 36 MG/DL Creatinine 1.58 MG/DL Random Glucose 149 MG/DL Calcium Level 9.5 MG/DL Magnesium Level 2.0 MG/DL Sodium Level 142 MEQ/L Potassium Level 5.0 MEQ/L Chloride Level 107 MEQ/L Carbon Dioxide Level 24.1 MEQ/L Anion Gap 11 MEQ/L Estimat Glomerular Filtration Rate 31 ML/MIN Troponin I LESS THAN 0.02 NG/ML LESS THAN 0.02 NG/ML LESS THAN 0.02 NG/ML B-Type Natriuretic Peptide 960 PG/ML Total Creatine Kinase 57 U/L 57 U/L Thyroid Stimulating Hormone 3rd Gen 1.940 uIU/ML Assessment and Plan Assessment and Plan Atrial fibrillation: on eliquis, fair rate control on IV amio - change to PO VT- on tele last night, high risk for sudden and ICD discussed. -She wants to discuss with Dr Duong as an out patient Heart failure: This does appear to be an acute on chronic presentation. Her last echo in the Fall showed an EF of 25-30%. -change to PO lasix CKD- cmp pending Hayley Owens MD Feb 23, 2017 07:09
[2017-02-23] MEDS: POTASSIUM CHLORIDE 10 MEQ CAP PO SCH (08:26)
[2017-02-23] MEDS: LISINOPRIL 5 MG TAB PO SCH (08:26)
[2017-02-23] MEDS: MAGNESIUM OXIDE 400 MG TAB PO SCH (08:26)
[2017-02-23] MEDS: PANTOPRAZOLE SOD 40 MG DELAYED RELEASE TAB PO SCH (08:26)
[2017-02-23] MEDS: SODIUM CHLORIDE 0.9% FLUSH 10 ML FLUSH IV FLUSH SCH ×2 (08:27→20:22)
[2017-02-23] MEDS: AMIODARONE 200 MG TAB PO SCH (08:27)
[2017-02-23] MEDS: APIXABAN 2.5 MG TABLET PO SCH ×2 (08:27→20:21)
[2017-02-23] MEDS: CARVEDILOL 6.25 MG TAB PO SCH ×2 (08:27→20:21)
[2017-02-23 08:51] LABS: MEAN CELL VOLUME 93.8 FL (80.0-100.0); PLATELET COUNT 179 TH/MM3 (150-450); RED BLOOD COUNT 3.94 MIL/MM3 (4.00-5.30); RED CELL DISTRIBUTION WIDTH 14.8 % (11.6-17.2); REVIEW FLAG FINAL; WHITE BLOOD COUNT 9.5 TH/MM3 (4.0-11.0)
[2017-02-23] MEDS ORDERED: FUROSEMIDE 40 MG TAB PO SCH ×2 (09:00)
[2017-02-23] MEDS ORDERED: PNEUMOCOCCAL POLYVALENT INJ 25 MCG/0.5 ML SYR IM ONE (09:00)
[2017-02-23 09:02] LABS: ALT (GPT) 30 U/L (10-53); ANION GAP 10 MEQ/L (5-15); AST (GOT) 23 U/L (15-37); BLOOD UREA NITROGEN 34 MG/DL (7-18); CHLORIDE 106 MEQ/L (98-107); GLOMERULAR FILTRATION RATE 36 ML/MIN (>89); MAGNESIUM 1.8 MG/DL (1.5-2.5); POTASSIUM 4.2 MEQ/L (3.5-5.1); SODIUM (NA) 136 MEQ/L (136-145)
[2017-02-23 09:04] LABS: ALKALINE PHOSPHATASE 101 U/L (45-117); TOTAL BILIRUBIN ADULT 1.4 MG/DL (0.2-1.0)
[2017-02-23] MEDS ORDERED: ONDANSETRON ODT 4 MG TAB PO PRN (11:00)
--- NOTE | 2017-02-23 11:38 | HHI.HP ---
[facility] Service Family Medicine Primary Care Physician Fatou Johnson MD Admission Diagnosis CHF exacerbation, afib RVR Diagnoses: (1) Atrial fibrillation with rapid ventricular response Diagnosis: Principal (2) Congestive heart failure Diagnosis: Principal (3) Elevated serum creatinine Diagnosis: Principal (4) GERD (gastroesophageal reflux disease) Diagnosis: Principal (5) Colostomy care Diagnosis: Principal (6) FEN/PPX Diagnosis: Principal International Travel<30 Days: No Contact w/Intl Traveler<30days: No Known Affected Area: No History of Present Illness Ms Goodwin is an 86-year-old female, past medical history of atrial fibrillation and CHF, who presents with shortness of breath since 12 AM on the day of admission. Patient awoke from sleep with shortness of breath that was not alleviated by position. The shortness of breath continued until 7 AM and she started feeling chest pressure at that time. Patient states the chest pressure was nonpainful, covering her entire chest, and alleviated after short period of time (within 1 hour). Her daughter brought her into the ER immediately when chest pressure began. The patient states she has noticed that she has had dry coughing over the last 3 weeks. This cough has been occurring while she is laying down at night. The cough is nonproductive, and not associated with congestion, fever, or any other symptoms. Patient did fill an episode similar to this episode of shortness of breath one year ago at the [facility]. Patient denies any palpitations or current chest pain. Patient admits to episodes of dizziness over the last month however this is closely associated with being out in the heat for long periods of time. Patient states her CHF and A. fib are well controlled by her order checker, and her last appointment was 4 months ago. Patient denies fever/chills. She denies any current chest pain/shortness of breath/dizziness. She wants to go home as soon as possible but has some mild nausea today and is not "back to normal". Her heart rate is still hovering at 100 or a bit more this am. Otherwise, she does not complain about any acute problems today. Review of Systems Other Constitutional: DENIES: Fatigue, Fever Endocrine: DENIES: Heat/cold intolerance, Polydipsia Eyes: DENIES: Eye inflammation, Eye pain Ears, nose, mouth, throat: DENIES: Vertigo, Throat pain Respiratory: DENIES: Wheezing, Hemoptysis Gastrointestinal: DENIES: Bloody stools, Constipation Genitourinary: DENIES: Dysmenorrhea, Dyspareunia Musculoskeletal: DENIES: Stiffness, Joint Swelling Integumentary: DENIES: Rash Neurologic: DENIES: Headache, Seizures Past Family Social History Past Medical History lymphoma s/p treatment cancer free since 2014 - oncologist (last appt last week) afib on eliquis - Afib diagnosed s/p hip operation in 2015, f/u by CHF - diagnosed in 2015, f/u by colostomy - 2013 s/p diverticulitis , no plans for re-anastamosis Osteoarthritis: worst at shoulder joints, also knee and hip x 5 - no complications Past Surgical History cholostomy s/p diverticulitis 2013 hip surgery 1 year ago (revision 2016) multiple hip surgeries 8 yrs ago s/p fall (4 on R hip, 1 left hip) - fx of femur involved per pt Allergies: Coded Allergies: ciprofloxacin (Unverified Allergy, Severe, HALLUCINATIONS, 02/22/17) *MDRO Multi-Drug Resistant Organism (Verified Adverse Reaction, Unknown, ) 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 Family History father - unsure heart disease in his 90s mother - none - both lived until 90 y/o Social History denies x 3 lives with daughter Physical Exam Vital Signs Vital Signs Date Time Temp Pulse Resp B/P (MAP) Pulse Ox O2 Delivery O2 Flow Rate FiO2 02/23/17 08:53 97 Nasal Cannula 2.00 02/23/17 08:07 97.6 109 18 135/92 (106) 96 02/23/17 04:00 97.5 80 20 117/78 (91) 95 02/23/17 00:00 97.6 89 20 105/72 (83) 95 02/22/17 22:40 Nasal Cannula 2.00 02/22/17 20:00 97.7 85 20 174/79 (110) 93 02/22/17 17:32 110 122/72 02/22/17 17:00 Nasal Cannula 2.00 02/22/17 16:23 121 20 124/79 (94) 02/22/17 16:17 121 02/22/17 16:00 98.3 110 20 141/98 (112) 92 02/22/17 15:57 106 126/71 02/22/17 11:49 93 Physical Exam GENERAL: This is a well-nourished, well-developed patient, in no apparent distress,sitting up in a chair today complaining of mild nausea SKIN: No rashes, ecchymoses or lesions. Cool and dry. HEAD: Atraumatic. Normocephalic. EYES: Pupils equal round and reactive. Extraocular motions intact. No scleral icterus. No injection or drainage. ENT: Nose without bleeding, purulent drainage or septal hematoma. Throat without erythema, tonsillar hypertrophy or exudate. Uvula midline. Airway patent. NECK: Trachea midline. No JVD or lymphadenopathy. Supple, nontender, no meningeal signs. CARDIOVASCULAR: irregular rate and rhythm , gallops, or rubs. RESPIRATORY: Clear to auscultation. Breath sounds equal bilaterally. No wheezes , rales, or rhonchi. GASTROINTESTINAL: Abdomen soft, non-tender, nondistended. No hepato-splenomeg monalisa, or palpable masses. No guarding. Cholostomy bag is in place. MUSCULOSKELETAL: Extremities without clubbing, cyanosis, or edema. No joint tenderness, effusion, or edema noted. No calf tenderness. Negative Homans sign bilaterally. NEUROLOGICAL: Awake and alert. Cranial nerves II through XII intact. Motor and sensory grossly within normal limits. Five out of 5 muscle strength in all muscle groups. Normal speech. Laboratory Laboratory Tests Test 02/22/17 15:37 02/22/17 21:30 02/23/17 07:55 Activated Partial Thromboplast Time 25.9 Total Creatine Kinase 57 57 Troponin I LESS THAN 0.02 LESS THAN 0.02 Thyroid Stimulating Hormone 3rd Gen 1.940 White Blood Count 9.5 Red Blood Count 3.94 Hemoglobin 12.2 Hematocrit 37.0 Mean Corpuscular Volume 93.8 Mean Corpuscular Hemoglobin 31.0 Mean Corpuscular Hemoglobin Concent 33.0 Red Cell Distribution Width 14.8 Platelet Count 179 Mean Platelet Volume 9.3 Blood Urea Nitrogen 34 Creatinine 1.39 Random Glucose 126 Total Protein 6.6 Albumin 3.3 Calcium Level 8.9 Magnesium Level 1.8 Alkaline Phosphatase 101 Aspartate Amino Transf (AST/SGOT) 23 Alanine Aminotransferase (ALT/SGPT) 30 Total Bilirubin 1.4 Sodium Level 136 Potassium Level 4.2 Chloride Level 106 Carbon Dioxide Level 20.0 Anion Gap 10 Estimat Glomerular Filtration Rate 36 Result Diagram: 02/23/17 0755 02/23/17 0755 Caprini VTE Risk Assessment Caprini VTE Risk Assessment: No/Low Risk (score <= 1) Caprini Risk Assessment Model Point Value = 1 Point Value = 2 Point Value = 3 Point Value = 5 Age 41-60 Minor surgery BMI > 25 kg/m2 Swollen legs Varicose veins or History of unexplained or recurrent spontaneous Oral contraceptives or hormone replacement Sepsis (< 1 month) Serious lung disease, including pneumonia (< 1 month) Abnormal pulmonary function Acute myocardial infarction Congestive heart failure (< 1 month) History of inflammatory bowel disease Medical patient at bed rest Age 61-74 Arthroscopic surgery Major open surgery (> 45 min) Laparoscopic surgery (> 45 min) Malignancy Confined to bed (> 72 hours) Immobilizing plaster cast Central venous access Age >= 75 History of VTE Family history of VTE Factor V Leiden Prothrombin [id number] Lupus anticoagulant Anticardiolipin antibodies Elevated serum homocysteine Heparin-induced thrombocytopenia Other congenital or acquired thrombophilia Stroke (< 1 month) Elective arthroplasty Hip, pelvis, or leg fracture Acute spinal cord injury (< 1 month) Prophylaxis Regimen Total Risk Factor Score Risk Level Prophylaxis Regimen 0-1 Low Early ambulation 2 Moderate Order ONE of the following: *Sequential Compression Device (SCD) *Heparin 5000 units SQ BID 3-4 Higher Order ONE of the following medications: *Heparin 5000 units SQ TID *Enoxaparin/Lovenox 40 mg SQ daily (WT < 150 kg, CrCl > 30 mL/min) *Enoxaparin/Lovenox 30 mg SQ daily (WT < 150 kg, CrCl > 10-29 mL/min) *Enoxaparin/Lovenox 30 mg SQ BID (WT < 150 kg, CrCl > 30 mL/min) AND/OR *Sequential Compression Device (SCD) 5 or more Highest Order ONE of the following medications: *Heparin 5000 units SQ TID (Preferred with Epidurals) *Enoxaparin/Lovenox 40 mg SQ daily (WT < 150 kg, CrCl > 30 mL/min) *Enoxaparin/Lovenox 30 mg SQ daily (WT < 150 kg, CrCl > 10-29 mL/min) *Enoxaparin/Lovenox 30 mg SQ BID (WT < 150 kg, CrCl > 30 mL/min) AND *Sequential Compression Device (SCD) Assessment and Plan Assessment and Plan 86 y/o F, hx of Afib on Eliquis, presenting in Afib with RVR and some CHF sxs Problem List: (1) Congestive heart failure ICD Codes: I50.9 - Heart failure, unspecified Status: Chronic Plan: History of CHF diagnosed in 2016. Patient has been following up with order checker Dr. Duong and says that her CHF has been well controlled normally . However patient presented complaining of chest pain and shortness of breath on admission. Decreased breath sounds on exam and O2 sats on room air 88-100 - Creatinine 1.58, troponin less than 0.02, BNP 960 - Patient appears to have acute on chronic CHF, probably rate related - Last echo in the fall showed an EF of 25-30% - Follow up cardio recommendations; beta shauna, low-dose ALLNE inhibitor (as BP tolerates) - Continue carvedilol 6.25 twice a day - Continue lisinopril 5 daily - Continue furosemide 40 daily and potassium chloride 10 daily she was started on amiodarone per cardiology (2) Atrial fibrillation with rapid ventricular response ICD Codes: I48.91 - Unspecified atrial fibrillation Status: Acute Plan: History of A. fib followed up with order checker Dr. Duong. Patient was recently having some difficulties with hypertension and diltiazem was discontinued. She presented to ED in A. fib with RVR in the 150s. Blood pressure was 149/100 so Cardizem 15 IV was given in ED but has a short half life -Troponin less than 0.022 - Consulted cardiology; diltiazem is a negative inotrope so even though it does control her rate she will have her meds adjusted without this - Follow up cardiology recs. Amiodarone to be started. Continue Eliquis. Continue low-dose beta shauna as noted above for heart failure - Continue Eliquis 2.5 twice a day - Continue carvedilol 6.25 twice a day, if her heart rate remains high perhaps she can tolerate more beta shauna vs the amiodarone should help (3) Elevated serum creatinine ICD Codes: R79.89 - Other specified abnormal findings of blood chemistry Status: Acute Plan: Creatinine up to 1.58 today (see up from baseline per previous notes) - Follow-up BUN/creatinine in a.m. (4) GERD (gastroesophageal reflux disease) ICD Codes: K21.9 - Gastro-esophageal reflux disease without esophagitis Status: Chronic Plan: Continue Nexium 20 twice a day (5) Colostomy care ICD Codes: Z43.3 - Encounter for attention to colostomy Status: Chronic Plan: Continue lactobacillus daily (6) FEN/PPX Status: Chronic Plan: Fluids: Continue by mouth fluid Electrolytes: Magnesium oxide 400 daily, serum chloride 10 daily Nutrition: Heart healthy diet GI ppx: Protonix, Tums chewables DVT ppx: Eliquis, SCDs Physician Certification 2 Midnight Certification Type: Admission for Inpatient Services Order for Inpatient Services The services are ordered in accordance with Medicare regulations or non- Medicare payer requirements, as applicable. In the case of services not specified as inpatient-only, they are appropriately provided as inpatient services in accordance with the 2-midnight benchmark. Estimated LOS (days): 3 3 days is the estimated time the patient will need to remain in the hospital, assuming treatment plan goals are met and no additional complications. Post-Hospital Plan: Home Problem Qualifiers (1) Congestive heart failure: Qualified Codes: I50.9 - Heart failure, unspecified (2) GERD (gastroesophageal reflux disease): Qualified Codes: K21.9 - Gastro-esophageal reflux disease without esophagitis Kenya Cates MD Feb 23, 2017 11:38
--- NOTE | 2017-02-23 17:00 | ECHRPT ---
Indication: HYPERTENSIVE HEART D CONCLUSIONS Mildly dilated left ventricle. Wall thickness is normal. The left ventricular systolic function is severely reduced with an estimated ejection fraction of 25 %. There is global left ventricular hypokinesis. Moderate thickening and calcification of the posterior mitral valve leaflet. Mild mitral valve regurgitation. Mitral annular calcification is present. Mild thickening and calcification of the aortic valve leaflets. There is mild tricuspid valve regurgitation. No pericardial effusion. A left pleural effusion may be present. BP: 154 / 83 HR: 106 Rhythm: MEASUREMENTS (Male / Female) Normal Values Technical Quality:Good 2D ECHO LV Diastolic Diameter PLAX 4.8 cm 4.2 - 5.9 / 3.9 - 5.3 cm LV Systolic Diameter PLAX 4.3 cm IVS Diastolic Thickness 1.4 cm 0.6 - 1.0 / 0.6 - 0.9 cm LVPW Diastolic Thickness 0.8 cm 0.6 - 1.0 / 0.6 - 0.9 cm LV Relative Wall Thickness 0.4 LA Systolic Diameter LX 4.3 cm 3.0 - 4.0 / 2.7 - 3.8 cm DOPPLER MV Peak Velocity 148.0 cm/s MV Peak Gradient 8.8 mmHg MV Mean Velocity 71.8 cm/s MV Mean Gradient 3.0 mmHg MR Peak Velocity 466.0 cm/s MR Peak Gradient 86.9 mmHg Mitral E Point Velocity 124.0 cm/s TR Peak Velocity 297.0 cm/s TR Peak Gradient 35.3 mmHg FINDINGS LEFT VENTRICLE Mildly dilated left ventricle. Wall thickness is normal. The left ventricular systolic function is severely reduced with an estimated ejection fraction of 25 %. There is global left ventricular hypokinesis. RIGHT VENTRICLE Normal right ventricular size and systolic function. LEFT ATRIUM RIGHT ATRIUM ATRIAL SEPTUM Normal atrial septal thickness without atrial level shunting by limited color doppler interrogation. AORTA The aortic root and proximal ascending aorta are normal in size on limited imaging. MITRAL VALVE Moderate thickening and calcification of the posterior mitral valve leaflet. Mild mitral valve regurgitation. Mitral annular calcification is present. AORTIC VALVE Mild thickening and calcification of the aortic valve leaflets. TRICUSPID VALVE There is mild tricuspid valve regurgitation. PULMONARY VALVE Mild pulmonary valve regurgitation. VESSELS The inferior vena cava is normal in size. PERICARDIUM No pericardial effusion. A left pleural effusion may be present. Ricardo Lou MD (Electronically Signed) Final Date:23 February 2017 16:59
--- NOTE | 2017-02-23 19:48 | EKG ---
Date Performed: 02/22/2017 Time Performed: 19:36:07 PTAGE: 86 years EKG: ATRIAL FLUTTER/TACHYCARDIA WITH RAPID VENTRICULAR RESPONSE LEFT ANTERIOR FASCICULAR BLOCK N ONSPECIFIC T-WAVE ABNORMALITY ABNORMAL ECG PREVIOUS TRACING : 02/22/2017 07.31 Compared to the previous tracing rate slower DOCTOR: Meghan Cervantes Interpretating Date/Time 02/23/2017 19:46:58
[2017-02-23] MEDS: ATORVASTATIN 20 MG TAB PO SCH (20:21)
--- NOTE | 2017-02-23 20:22 | EKG ---
Date Performed: 02/22/2017 Time Performed: 07:31:14 PTAGE: 86 years EKG: ATRIAL FIBRILLATION WITH RAPID VENTRICULAR RESPONSE WITH ABERRANT CONDUCTION OR VENTRICULAR PREMATURE COMPLEXES MARKED LEFT AXIS DEVIATION LOW QRS VOLTAGE IN PRECORDIAL LEADS POOR R WAVE PROGR ESSION ABNORMAL ECG PREVIOUS TRACING : 03/30/2016 21.52 Compared to the previous tracing rate faster DOCTOR: Meghan Cervantes Interpretating Date/Time 02/23/2017 20:20:35
[2017-02-24 00:54] VITALS: BP 108/68; PULSE 93; RESP 18; TEMP 98.2; O2SAT 97
[2017-02-24 04:36] VITALS: BP 112/71; PULSE 81; RESP 16; TEMP 98.2; O2SAT 97
--- NOTE | 2017-02-24 08:03 | PD.CARD.PN ---
Subjective Subjective Remarks Pt without complaints Objective Medications Current Medications Medications (Trade) Dose Ordered Sig/Deidra Route Start Time Stop Time Status Last Admin (NS Flush) 2 ml UNSCH PRN IVF 02/22/17 07:45 (NS Flush) 2 ml UNSCH PRN IV FLUSH 02/22/17 09:30 (NS Flush) 2 ml BID IV FLUSH 02/22/17 09:30 02/23/17 20:22 (Eliquis) 2.5 mg BID PO 02/22/17 10:00 02/23/17 20:21 (Lipitor) 20 mg HS PO 02/22/17 21:00 02/23/17 20:21 (Coreg) 6.25 mg BID PO 02/22/17 21:00 02/23/17 20:21 (Lasix) 40 mg DAILY PO 02/23/17 09:00 02/23/17 08:27 (Lactinex) 1 tab DAILY PO 02/23/17 09:00 (Prinivil) 5 mg DAILY PO 02/22/17 10:30 02/23/17 08:26 (Mag-Ox) 400 mg DAILY PO 02/23/17 09:00 02/23/17 08:26 (KCl) 10 meq DAILY PO 02/23/17 09:00 02/23/17 08:26 (Protonix) 40 mg DAILY PO 02/22/17 11:00 02/23/17 08:26 (Tylenol) 650 mg Q4H PRN PO 02/22/17 13:00 (Zofran Inj) 4 mg Q6H PRN IV 02/22/17 12:00 (Tums Chew) 1,000 mg TID PRN CHEW 02/22/17 13:00 (Duoneb Neb) 1 ampule Q6HR NEB PRN NEB 02/22/17 13:00 (Vistaril) 50 mg HS PRN PO 02/22/17 13:00 (Cordarone) 200 mg DAILY PO 02/23/17 09:00 02/23/17 08:27 (Lasix) 40 mg DAILY PO 02/23/17 09:00 (Zofran Odt) 4 mg Q6H PRN PO 02/23/17 11:00 Vital Signs / I&O Vital Signs Date Time Temp Pulse Resp B/P (MAP) Pulse Ox O2 Delivery O2 Flow Rate FiO2 8/24/17 04:36 98.2 81 16 112/71 (85) 97 02/24/17 04:00 Nasal Cannula 2.00 02/24/17 00:54 98.2 93 18 108/68 (81) 97 02/24/17 00:00 Nasal Cannula 2.00 02/23/17 20:41 97.8 93 18 129/89 (102) 97 02/23/17 20:00 Nasal Cannula 2.00 02/23/17 20:00 100 02/23/17 19:28 96 Nasal Cannula 2.00 02/23/17 16:17 98.1 99 18 117/65 (82) 99 02/23/17 12:07 97.5 83 18 105/79 (88) 96 02/23/17 11:00 Nasal Cannula 2.00 02/23/17 08:53 97 Nasal Cannula 2.00 02/23/17 08:07 97.6 109 18 135/92 (106) 96 02/23/17 08:05 114 I/O 02/23/17 02/23/17 02/23/17 02/24/17 02/24/17 02/24/17 07:00 15:00 23:00 07:00 15:00 23:00 Intake Total 240 ml 600 ml 240 ml Output Total 200 ml Balance 40 ml 600 ml 240 ml Intake Oral 240 ml 600 ml 240 ml Output Urine Total 200 ml # Voids 1 4 1 # Bowel Movements 0 Physical Exam GENERAL: Well developed, well nourished. No acute distress. HEENT: Jugular venous pressure is normal. CHEST: Lungs decreased and clear to auscultation bilaterally. Unlabored respiratory effort. CARDIAC: Regular rate and rhythm without S3, S4, or murmur. ABDOMEN: Soft, nontender, no hepatosplenomegaly. Bowel sounds present. EXTREMITIES: no edema. Laboratory Laboratory Tests Test 02/24/17 06:43 Assessment and Plan Assessment and Plan Atrial fibrillation: on eliquis, fair rate control on PO amio - ok for d/c if HR <115 with ambulation VT- high risk for sudden and ICD discussed. -She wants to discuss with Dr Duong as an out patient Heart failure: This does appear to be an acute on chronic presentation. Her last echo in the Fall showed an EF of 25-30%. -on PO lasix CKD- Dispo- ok for d/c if HR <115 with ambulation Hayley Owens MD Feb 24, 2017 08:03
[2017-02-24 08:07] VITALS: BP 104/57; PULSE 102; RESP 18; TEMP 98.2; O2SAT 94
[2017-02-24 08:10] LABS: BICARBONATE 24.1 MEQ/L (21.0-32.0); POTASSIUM 4.6 MEQ/L (3.5-5.1)
[2017-02-24] MEDS: LACTOBACILLUS ACIDOPHILUS TAB PO SCH ×2 (08:36→09:00)
[2017-02-24] MEDS: MAGNESIUM OXIDE 400 MG TAB PO SCH (08:37)
[2017-02-24] MEDS: LISINOPRIL 5 MG TAB PO SCH (08:37)
[2017-02-24] MEDS: APIXABAN 2.5 MG TABLET PO SCH (08:37)
[2017-02-24] MEDS: AMIODARONE 200 MG TAB PO SCH (08:37)
[2017-02-24] MEDS: CARVEDILOL 6.25 MG TAB PO SCH (08:37)
[2017-02-24] MEDS: POTASSIUM CHLORIDE 10 MEQ CAP PO SCH (08:37)
[2017-02-24] MEDS: PANTOPRAZOLE SOD 40 MG DELAYED RELEASE TAB PO SCH (08:39)
[2017-02-24] MEDS ORDERED: AMIO200T PO (12:11)
--- NOTE | 2017-02-24 12:12 | HHI.DCPOC ---
Discharge Care Plan Diagnosis: (1) CHF exacerbation (2) Atrial fibrillation with rapid ventricular response Goals to Promote Your Health * To prevent worsening of your condition and complications * To maintain your health at the optimal level Directions to Meet Your Goals Take your medications as prescribed Follow your dietary instruction Follow activity as directed Keep your appointments as scheduled Take your immunizations and boosters as scheduled If your symptoms worsen call your PCP, if no PCP go to Urgent Care Center or Emergency Room Smoking is Dangerous to Your Health. Avoid second hand smoke Call the 24-hour hour crisis hotline for domestic abuse at Cristino Sanchez MD R2 Feb 24, 2017 12:12
[2017-02-24 12:32] VITALS: BP 96/55; PULSE 69; RESP 20; TEMP 97.4; O2SAT 94
[2017-02-24 14:22] VITALS: PULSE 94
--- NOTE | 2017-02-24 15:38 | HHI.FPPN ---
Subjective Remarks Patient seen and examined by medical team this morning. No acute events overnight per nursing staff. Patient with fluctuating heart rate from 83-114 bpm due to her atrial fibrillation over the last 24 hours. Patient currently has no complaints and desires to go home. She denies any fevers, chills, shortness of breath, chest pain, NVD, abdominal pain, or calf tenderness. Her daughter is at the bedside and states that they will have close follow-up with her healthcare corporate account director, Dr. Duong, as she will possibly need an ICD due to her atrial fibrillation. (Cristino Sanchez MD R2) Objective Vitals Vital Signs Date Time Temp Pulse Resp B/P (MAP) Pulse Ox O2 Delivery O2 Flow Rate FiO2 02/24/17 14:22 94 02/24/17 12:32 97.4 69 20 96/55 (69) 94 02/24/17 08:07 98.2 102 18 104/57 (73) 94 02/24/17 04:36 98.2 81 16 112/71 (85) 97 02/24/17 04:00 Nasal Cannula 2.00 02/24/17 00:54 98.2 93 18 108/68 (81) 97 02/24/17 00:00 Nasal Cannula 2.00 02/23/17 20:41 97.8 93 18 129/89 (102) 97 02/23/17 20:00 Nasal Cannula 2.00 02/23/17 20:00 100 02/23/17 19:28 96 Nasal Cannula 2.00 02/23/17 16:17 98.1 99 18 117/65 (82) 99 I/O 02/23/17 02/23/17 02/23/17 02/24/17 02/24/17 02/24/17 06:59 14:59 22:59 06:59 14:59 22:59 Intake Total 240 ml 600 ml 240 ml Output Total 200 ml Balance 40 ml 600 ml 240 ml Intake Oral 240 ml 600 ml 240 ml Output Urine Total 200 ml # Voids 1 4 1 # Bowel Movements 0 (Cristino Sanchez MD R2) Result Diagram: 02/23/17 0755 02/24/17 0643 Objective Remarks GENERAL: Well-nourished, well-developed elderly female sitting up in her recliner in no acute distress. SKIN: Warm and dry. No rash. HEENT: Atraumatic, normocephalic with EOMI. No rhinorrhea. No visible LAD or JVD appreciated. CARDIOVASCULAR: Irregular rate and rhythm with no MGR appreciated. 2+ pulses in all 4 chambers. RESPIRATORY: Clear to auscultation bilaterally with no CRW. No increased work of breathing. GASTROINTESTINAL: Abdomen soft, non-tender, nondistended with positive bowel sounds. No masses appreciated. MUSCULOSKELETAL: No cyanosis or edema. Strength grossly WNL. No calf tenderness. NEURO/PSYCH: Afocal. Awake, alert, and oriented x3. Normal speech and judgment. Mildly decreased hearing. (Cristino Sanchez MD R2) A/P Assessment and Plan Mrs. Skinner is an 86 y/o F with a PMHx of CHF and atrial fibrillation presenting with shortness of breath secondary to likely CHF exacerbation as well as uncontrolled ventricular rate. Discharge Planning Likely today pending home to walk test and no new onset tachycardia per cardiology recommendations. (Cristino Sanchez MD R2) Attending Attestation Patient seen and examined. Case reviewed and discussed with the resident team. Agree with plan of care as discussed with me and documented in the resident note. she very much wants to go home today and is walking well and has better, lower pulse today. She will follow up closely with her regular [employer] (Kenya Cates MD) Problem List: (1) Congestive heart failure ICD Codes: I50.9 - Heart failure, unspecified Status: Chronic Plan: History of CHF diagnosed in 2016. Patient has been following up with healthcare corporate account director Dr. Duong and says that her CHF has been well controlled normally . However patient presented complaining of chest pain and shortness of breath on admission. Decreased breath sounds on admission exam and O2 sats on room air 88- 100. Exacerbation likely related to rapid ventricular rate causing episode of uncompensated heart failure. -Echocardiogram 02/23: Estimated ejection fraction 25%. Global left ventricular hypokinesis. Normal wall thickness with mildly dilated left ventricle. Moderate thickening and calcification of the posterior mitral leaflet. Mild mitral valve regurgitation. -Patient diuresed well after one time dose of IV Lasix, continued on her home Lasix 40 mg daily -Patient to be discharged home on Lasix 40 mg daily, lisinopril 5 mg daily, and carvedilol 6.25 mg twice a day (2) Atrial fibrillation with rapid ventricular response ICD Codes: I48.91 - Unspecified atrial fibrillation Status: Acute Plan: History of [facility] followed up with healthcare corporate account director Dr. Duong. Patient was recently having some difficulties with hypertension and diltiazem was discontinued. She presented to ED in [facility] with RVR in the 150s. Blood pressure was 149/100 so Cardizem 15 IV was given in ED but has a short half life -Cardiology consulted, appreciate recommendations -Patient initially started on diltiazem drip, however transitioned to amiodarone drip. On hospital day 2 by mouth amiodarone was started and tolerated well. -Patient to be discharged home on amiodarone 200 mg daily, carvedilol 6.25 mg twice a day, and eloquent's 2.5 mg twice a day. (3) Elevated serum creatinine ICD Codes: R79.89 - Other specified abnormal findings of blood chemistry Status: Acute Plan: Patient with baseline mild renal failure. Per chart review, creatinine baseline roughly 1.1-1.2. -Avoid nephrotoxic agents -Patient currently fluid overloaded, avoid nonessential fluids -Patient placed on salt and fluid restriction diet -Creatinine improving daily (4) GERD (gastroesophageal reflux disease) ICD Codes: K21.9 - Gastro-esophageal reflux disease without esophagitis Status: Chronic Plan: Patient with history of gastroesophageal reflux disease -Protonix 40 mg daily -Continue Nexium 20 twice a day at discharge (5) Colostomy care ICD Codes: Z43.3 - Encounter for attention to colostomy Status: Chronic Plan: Patient with history of diverticulitis s/p bowel resection with colostomy placement. -Colostomy on exam without abnormality, currently producing good output. Site does not appear infected and is CDI. -Continue lactobacillus daily (6) FEN/PPX Status: Chronic Plan: Fluids: Continue by mouth fluid Electrolytes: Patient to be discharged home magnesium oxide 4 mg daily and potassium chloride 10 mEq daily Nutrition: Heart healthy diet with fluid and sodium restriction GI ppx: As above DVT ppx: Eliquis, SCDs (Cristino Sanchez MD R2) Problem Qualifiers (1) Congestive heart failure: Qualified Codes: I50.9 - Heart failure, unspecified (2) GERD (gastroesophageal reflux disease): Qualified Codes: K21.9 - Gastro-esophageal reflux disease without esophagitis Cristino Sanchez MD R2 Feb 24, 2017 15:38 Kenya Cates MD Feb 25, 2017 12:45
--- NOTE | 2017-02-24 16:12 | HHI.DS ---
Discharge Summary Admission Date Feb 22, 2017 at 09:20 Discharge Date: Feb 24, 2017 Admitting Diagnosis CHF exacerbation, afib RVR (1) Congestive heart failure Diagnosis: Principal Plan: History of CHF diagnosed in 2016. Patient has been following up with telemetry registered nurse Dr. Duong and says that her CHF has been well controlled normally . However patient presented complaining of chest pain and shortness of breath on admission. Decreased breath sounds on admission exam and O2 sats on room air 88- 100. Exacerbation likely related to rapid ventricular rate causing episode of uncompensated heart failure. -Echocardiogram 02/23: Estimated ejection fraction 25%. Global left ventricular hypokinesis. Normal wall thickness with mildly dilated left ventricle. Moderate thickening and calcification of the posterior mitral leaflet. Mild mitral valve regurgitation. -Patient diuresed well after one time dose of IV Lasix, continued on her home Lasix 40 mg daily -Patient to be discharged home on Lasix 40 mg daily, lisinopril 5 mg daily, and carvedilol 6.25 mg twice a day ICD Codes: I50.9 - Heart failure, unspecified Status: Chronic (2) Atrial fibrillation with rapid ventricular response Diagnosis: Principal Plan: History of A. fib followed up with telemetry registered nurse Dr. Duong. Patient was recently having some difficulties with hypertension and diltiazem was discontinued. She presented to ED in A. fib with RVR in the 150s. Blood pressure was 149/100 so Cardizem 15 IV was given in ED but has a short half life -Cardiology consulted, appreciate recommendations -Patient initially started on diltiazem drip, however transitioned to amiodarone drip. On hospital day 2 by mouth amiodarone was started and tolerated well. -Patient to be discharged home on amiodarone 200 mg daily, carvedilol 6.25 mg twice a day, and eloquent's 2.5 mg twice a day. ICD Codes: I48.91 - Unspecified atrial fibrillation Status: Acute (3) Elevated serum creatinine Diagnosis: Principal Plan: Patient with baseline mild renal failure. Per chart review, creatinine baseline roughly 1.1-1.2. -Avoid nephrotoxic agents -Patient currently fluid overloaded, avoid nonessential fluids -Patient placed on salt and fluid restriction diet -Creatinine improving daily ICD Codes: R79.89 - Other specified abnormal findings of blood chemistry Status: Acute (4) GERD (gastroesophageal reflux disease) Diagnosis: Secondary Plan: Patient with history of gastroesophageal reflux disease -Protonix 40 mg daily -Continue Nexium 20 twice a day at discharge ICD Codes: K21.9 - Gastro-esophageal reflux disease without esophagitis Status: Chronic (5) Colostomy care Diagnosis: Secondary Plan: Patient with history of diverticulitis s/p bowel resection with colostomy placement. -Colostomy on exam without abnormality, currently producing good output. Site does not appear infected and is CDI. -Continue lactobacillus daily ICD Codes: Z43.3 - Encounter for attention to colostomy Status: Chronic (6) FEN/PPX Diagnosis: Principal Plan: Fluids: Continue by mouth fluid Electrolytes: Patient to be discharged home magnesium oxide 4 mg daily and potassium chloride 10 mEq daily Nutrition: Heart healthy diet with fluid and sodium restriction GI ppx: As above DVT ppx: Eliquis, SCDs Status: Chronic Brief History Ms Goodwin is an 86-year-old female, past medical history of atrial fibrillation and CHF, who presents with shortness of breath since 12 AM on the day of admission. Patient awoke from sleep with shortness of breath that was not alleviated by position. The shortness of breath continued until 7 AM and she started feeling chest pressure at that time. Patient states the chest pressure was nonpainful, covering her entire chest, and alleviated after short period of time (within 1 hour). Her daughter brought her into the ER immediately when chest pressure began. The patient states she has noticed that she has had dry coughing over the last 3 weeks. This cough has been occurring while she is laying down at night. The cough is nonproductive, and not associated with congestion, fever, or any other symptoms. Patient did fill an episode similar to this episode of shortness of breath one year ago at the [facility]. Patient denies any palpitations or current chest pain. Patient admits to episodes of dizziness over the last month however this is closely associated with being out in the heat for long periods of time. Patient states her CHF and A. fib are well controlled by her telemetry registered nurse, and her last appointment was 4 months ago. Patient denies fever/chills. She denies any current chest pain/shortness of breath/dizziness. She wants to go home as soon as possible but has some mild nausea today and is not "back to normal". Her heart rate is still hovering at 100 or a bit more this am. Otherwise, she does not complain about any acute problems today. CBC/BMP: 02/23/17 0755 02/24/17 0643 Significant Findings Laboratory Tests Test 02/22/17 07:45 02/22/17 15:37 02/22/17 21:30 02/23/17 07:55 Monocytes (%) (Auto) 12.6 % (0.0-8.0) Monocytes # (Auto) 1.2 TH/MM3 (0-0.9) Activated Partial Thromboplast Time 21.4 SEC (24.3-30.1) Blood Urea Nitrogen 36 MG/DL (7-18) 34 MG/DL (7-18) Creatinine 1.58 MG/DL (0.50-1.00) 1.39 MG/DL (0.50-1.00) Random Glucose 149 MG/DL (74-106) 126 MG/DL (74-106) Estimat Glomerular Filtration Rate 31 ML/MIN (>89) 36 ML/MIN (>89) Troponin I LESS THAN 0.02 NG/ML LESS THAN 0.02 NG/ML LESS THAN 0.02 NG/ML B-Type Natriuretic Peptide 960 PG/ML (0-100) Red Blood Count 3.94 MIL/MM3 (4.00-5.30) Albumin 3.3 GM/DL (3.4-5.0) Total Bilirubin 1.4 MG/DL (0.2-1.0) Carbon Dioxide Level 20.0 MEQ/L (21.0-32.0) Test 02/24/17 06:43 Blood Urea Nitrogen 34 MG/DL (7-18) Creatinine 1.30 MG/DL (0.50-1.00) Estimat Glomerular Filtration Rate 39 ML/MIN (>89) PE at Discharge GENERAL: Well-nourished, well-developed elderly female sitting up in her recliner in no acute distress. SKIN: Warm and dry. No rash. HEENT: Atraumatic, normocephalic with EOMI. No rhinorrhea. No visible LAD or JVD appreciated. CARDIOVASCULAR: Irregular rate and rhythm with no MGR appreciated. 2+ pulses in all 4 chambers. RESPIRATORY: Clear to auscultation bilaterally with no CRW. No increased work of breathing. GASTROINTESTINAL: Abdomen soft, non-tender, nondistended with positive bowel sounds. No masses appreciated. MUSCULOSKELETAL: No cyanosis or edema. Strength grossly WNL. No calf tenderness. NEURO/PSYCH: Afocal. Awake, alert, and oriented x3. Normal speech and judgment. Mildly decreased hearing. Hospital Course Patient was admitted for acute on chronic CHF exacerbation and was administered one dose of IV Lasix in the ER. Patient responded appropriately and was continued on her home dose of daily Lasix. Patient was also found to be in atrial fibrillation with RVR. Her rate was initially controlled on diltiazem drip, but was transitioned to amiodarone drip per cardiology consult. On hospital day 2 her amiodarone drip was discontinued and she was started on amiodarone 200 mg daily by mouth. Her rate was maintained and was without complaints at time of discharge on hospital day 3. Patient was discharged home with prescription for amiodarone 20 mg daily and advised to follow-up with her PCP and telemetry registered nurse within 1 week. She was continued on her home medications including her Eliquis twice a day for anticoagulation. At time of discharge patient voiced understanding of the medical plan with her daughter at bedside to transport her home. Pt Condition on Discharge: Stable Discharge Instructions Follow up Referrals: Cardiology - 1 Week PCP Follow-up - 1 Week New Medications: Amiodarone (Amiodarone) 200 Mg Tab 200 MG PO DAILY, #30 TAB 1 Refill Continued Medications: Apixaban (Eliquis) 2.5 Mg Tab 2.5 MG PO BID for Blood Clot Prevention, TAB 0 Refills Atorvastatin (Atorvastatin) 20 Mg Tab 20 MG PO HS for Cholesterol Management, #30 TAB 0 Refills Carvedilol (Carvedilol) 6.25 Mg Tab 6.25 MG PO BID, #60 TAB [address] (Nexium) 20 Mg Capdr 20 MG PO BID, CAP 0 Refills Furosemide (Furosemide) 40 Mg Tab 40 MG PO DAILY, #30 TAB 0 Refills Lactobacillus Acidophilus (Probiotic) 1 Cap Cap 1 CAP PO DAILY for Nutritional Supplement, #90 CAP 0 Refills Lisinopril (Lisinopril) 5 Mg Tab 5 MG PO DAILY for Blood Pressure Management, #30 TAB 0 Refills Magnesium Oxide (Magnesium Oxide) 400 Mg Tab 400 MG PO DAILY for Nutritional Supplement, TAB 0 Refills Potassium Chloride ER (Potassium Chloride ER) 10 Meq Cap 10 MEQ PO DAILY for Electrolyte Replacement, #30 CAP 0 Refills Cristino Sanchez MD R2 Feb 24, 2017 16:12
== END 2017-02-24 16:30 | disposition home or self-care (01) | DRG 309 ==
LOC: NEPC 07:28 → NEDA 09:20 → N04A 10:37
PROVIDERS: ADMIT Family Medicine; ATTEND Family Medicine
PROC: 3E0F7GC Introduction of Other Therapeutic Substance into Respiratory Tract, Via Natural or Artificial Opening (ICD-10-PCS; principal; 2017-02-22)
DX: I48.91 Unspecified atrial fibrillation (principal); I13.0 Hypertensive heart and chronic kidney disease with heart failure and stage 1 through stage 4 chronic kidney disease, or unspecified chronic kidney disease; I34.0 Nonrheumatic mitral (valve) insufficiency; I50.9 Heart failure, unspecified; Z79.01 Long term (current) use of anticoagulants; M19.90 Unspecified osteoarthritis, unspecified site; Z85.72 Personal history of non-Hodgkin lymphomas; K21.9 Gastro-esophageal reflux disease without esophagitis; G47.30 Sleep apnea, unspecified; Z96.643 Presence of artificial hip joint, bilateral; Z93.3 Colostomy status; N18.9 Chronic kidney disease, unspecified; E78.00 Pure hypercholesterolemia, unspecified; R09.02 Hypoxemia
CPT/HCPCS: 71010; 80048; 80053; 82550; 83735; 83880; 84443; 84484; 85025; 85027; 85610; 85730; 93005; 93306; 94150; 94620; 96374; 96375; J0282; J1940; J7060

== ENCOUNTER 2017-05-29 12:43 | Emergency (ER) | payer MEDICARE ==
[~2017-05-29] VITALS: Ht 152.4 cm; Wt 67.8 kg
[~2017-05-29 12:43] MED LIST changes: +AMIO200T PO; -BUME1TAB PO; -DILT120C9 PO; -IMIP10 PO; -METO2.5T PO
[2017-05-29 13:23] VITALS: BP 169/111; PULSE 110; RESP 20; TEMP 97.7; O2SAT 94
[2017-05-29 14:25] VITALS: RESP 16; O2SAT 98
[2017-05-29] MEDS ORDERED: SODIUM CHLORIDE 0.9% FLUSH 10 ML FLUSH IVF PRN (14:30)
--- NOTE | 2017-05-29 14:34 | PD ---
HPI Chief Complaint: Respiratory Symptoms Time Seen by Provider: 14:19 Travel History International Travel<30 days: No Contact w/Intl Traveler<30days: No Traveled to known affect area: No History of Present Illness HPI 2 DAYS OF WORSENING DRY COUGH, SOB, RATES ABOUT 6/10, WORSENED BY LAYING FLAT, IMPROVED SLIGHTLY BY SITTING UPRIGHT.... PFSH Past Medical History Hx Anticoagulant Therapy: Yes Arthritis: Yes Asthma: No Atrial Fibrillation: Yes Heart Rhythm Problems: Yes (A-fib) Cancer: Yes (LYMPHOMA ) Cardiovascular Problems: Yes (PACER) High Cholesterol: Yes Chemotherapy: Yes (2015; [facility]) Chest Pain: Yes Congestive Heart Failure: Yes Diabetes: No Endocrine: No Gastrointestinal Disorders: Yes (COLOSTOMY, DIVERTICULOSIS) GERD: Yes Genitourinary: No Hiatal Hernia: No Hypertension: Yes Immune Disorder: No Musculoskeletal: Yes Neurologic: No Psychiatric: No Reproductive: No Respiratory: Yes Immunizations Current: Yes Radiation Therapy: No Sleep Apnea: Yes Thyroid Disease: No Ulcer: No Past Surgical History Abdominal Surgery: Yes (COLECTOMY, COLOSTOMY, APPY CHOLECYSTECTOMY) AICD: No Cardiac Surgery: Yes (CARDIAC STENTS X 1 2010) Ear Surgery: No Endocrine Surgery: No Eye Surgery: Yes (CATARACT SURGERY) Genitourinary Surgery: No Gynecologic Surgery: No Joint Replacement: Yes (RIGHT HIP REPLACEMENT X 4, LEFT HIP X 1) Oral Surgery: No Pacemaker: No Thoracic Surgery: No Other Surgery: Yes (PORT FOR CHEMO D/C 2015 ) Social History Alcohol Use: No Tobacco Use: No Substance Use: No Allergies-Medications (Allergen,Severity, Reaction): Coded Allergies: ciprofloxacin (Unverified Allergy, Severe, HALLUCINATIONS, 05/29/17) *MDRO Multi-Drug Resistant Organism (Verified Adverse Reaction, Unknown, 05/29/17) 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 Reported Meds & Prescriptions Reported Meds & Active Scripts Active Amiodarone (Amiodarone HCl) 200 Mg Tab 200 Mg PO DAILY Reported Carvedilol 6.25 Mg Tab 6.25 Mg PO BID Probiotic (Lactobacillus Acidophilus) 1 Cap Cap 1 Cap PO DAILY Magnesium Oxide 400 Mg Tab 400 Mg PO DAILY Potassium Chloride ER (Potassium Chloride) 10 Meq Cap 10 Meq PO DAILY Furosemide 40 Mg Tab 40 Mg PO DAILY Lisinopril 5 Mg Tab 5 Mg PO DAILY Eliquis (Apixaban) 2.5 Mg Tab 2.5 Mg PO BID Nexium (Esomeprazole DR) 20 Mg Capdr 20 Mg PO BID Atorvastatin (Atorvastatin Calcium) 20 Mg Tab 10 Mg PO HS Review of Systems General / Constitutional: No: Fever Eyes: No: Visual changes HENT: No: Headaches Cardiovascular: No: Chest Pain or Discomfort Respiratory: Positive: Cough, Shortness of Breath Gastrointestinal: No: Abdominal Pain Genitourinary: No: Dysuria Musculoskeletal: No: Pain Skin: No Rash Neurologic: No: Weakness Psychiatric: No: Depression Endocrine: No: Polydipsia Hematologic/Lymphatic: No: Easy Bruising Physical Exam Narrative GENERAL: SKIN: Warm and dry. HEAD: Atraumatic. Normocephalic. EYES: Pupils equal and round. No scleral icterus. No injection or drainage. ENT: No nasal bleeding or discharge. Mucous membranes pink and moist. NECK: Trachea midline. No JVD. CARDIOVASCULAR: IRRegular rate and IRREGULAR rhythm. RESPIRATORY: No accessory muscle use. Clear to auscultation. Breath sounds equal bilaterally. GASTROINTESTINAL: Abdomen soft, non-tender, nondistended. MUSCULOSKELETAL: Extremities without clubbing, cyanosis, or edema. No obvious deformities. NEUROLOGICAL: Awake and alert. No obvious cranial nerve deficits. Motor grossly within normal limits. Five out of 5 muscle strength in the arms and legs. Normal speech. PSYCHIATRIC: Appropriate mood and affect; insight and judgment normal. Data Data Last Documented VS Vital Signs Date Time Temp Pulse Resp B/P (MAP) Pulse Ox O2 Delivery O2 Flow Rate FiO2 05/29/17 14:25 16 98 Nasal Cannula 2.00 05/29/17 14:20 102 05/29/17 13:23 97.7 169/111 (130) Orders Orders Complete Blood Count With Diff (05/29/17 14:20) Comprehensive Metabolic Panel (05/29/17 14:20) B-Type Natriuretic Peptide (05/29/17 14:20) Act Partial Throm Time (Ptt) (05/29/17 14:20) Prothrombin Time / Inr (Pt) (05/29/17 14:20) Troponin I (05/29/17 14:20) Influenzae A/B Antigen (05/29/17 14:20) Iv Access Insert/Monitor (05/29/17 14:20) Electrocardiogram (05/29/17 14:20) Ecg Monitoring (05/29/17 14:20) Oximetry (05/29/17 14:20) Oxygen Administration (05/29/17 14:20) Chest, Single Ap (05/29/17 14:20) Sodium Chloride 0.9% Flush (Ns Flush) (05/29/17 14:30) Furosemide Inj (Lasix Inj) (05/29/17 15:45) Labs Laboratory Tests Test 05/29/17 14:45 White Blood Count 7.5 TH/MM3 Red Blood Count 4.20 MIL/MM3 Hemoglobin 12.3 GM/DL Hematocrit 37.6 % Mean Corpuscular Volume 89.6 FL Mean Corpuscular Hemoglobin 29.2 PG Mean Corpuscular Hemoglobin Concent 32.6 % Red Cell Distribution Width 13.6 % Platelet Count 178 TH/MM3 Mean Platelet Volume 8.8 FL Neutrophils (%) (Auto) 59.3 % Lymphocytes (%) (Auto) 22.9 % Monocytes (%) (Auto) 15.4 % Eosinophils (%) (Auto) 1.8 % Basophils (%) (Auto) 0.6 % Neutrophils # (Auto) 4.5 TH/MM3 Lymphocytes # (Auto) 1.7 TH/MM3 Monocytes # (Auto) 1.2 TH/MM3 Eosinophils # (Auto) 0.1 TH/MM3 Basophils # (Auto) 0.0 TH/MM3 CBC Comment DIFF FINAL Differential Comment Prothrombin Time 10.9 SEC Prothromb Time International Ratio 1.0 RATIO Activated Partial Thromboplast Time 27.1 SEC Blood Urea Nitrogen 23 MG/DL Creatinine 1.30 MG/DL Random Glucose 105 MG/DL Total Protein 6.8 GM/DL Albumin 3.8 GM/DL Calcium Level 8.7 MG/DL Alkaline Phosphatase 132 U/L Aspartate Amino Transf (AST/SGOT) 31 U/L Alanine Aminotransferase (ALT/SGPT) 39 U/L Total Bilirubin 1.3 MG/DL Sodium Level 138 MEQ/L Potassium Level 4.1 MEQ/L Chloride Level 105 MEQ/L Carbon Dioxide Level 23.8 MEQ/L Anion Gap 9 MEQ/L Estimat Glomerular Filtration Rate 39 ML/MIN Troponin I LESS THAN 0.02 NG/ML B-Type Natriuretic Peptide 789 PG/ML MDM Medical Decision Making Medical Screen Exam Complete: Yes Emergency Medical Condition: Yes Medical Record Reviewed: Yes Interpretation(s) AFIB, 109, NO STEMI PATTERN normal pulse ox 96 on ra, with excellent pleth wave Differential Diagnosis PNA V FLU V CHF V Narrative Course neg flu test, cxr neg for pna, positive for pulm edema. Diagnosis Primary Impression: chf exacerbation mild Patient Instructions: General Instructions, Heart Failure (ED) Disposition: 01 DISCHARGE HOME Condition: Stable Gera Rivera MD May 29, 2017 14:34
[2017-05-29 14:45] VITALS: BP 139/97; PULSE 95; RESP 16
--- NOTE | 2017-05-29 15:02 | RADRPT ---
EXAM DATE/TIME: 05/29/2017 14:21 CORRECTION Corrected on: May 31, 2017; fixed date and time [facility] COMPARISON: CHEST SINGLE AP, February 22, 2017, 8:04. INDICATIONS : Short of breath. MEDICAL HISTORY : Cardiovascular disease. SURGICAL HISTORY : Pacemaker. ENCOUNTER: Initial ACUITY: 1 day PAIN SCORE: 6/10 LOCATION: Bilateral chest FINDINGS: Cardiomegaly and indistinctness of the central bronchopulmonary markings with engorgement and mild pa rabronchial thickening is similar to prior chest x-ray but taking into account difference in techniqu e. Cardiac pacer with [address]. CONCLUSION: Cardiomegaly with diffuse airspace opacities in both lungs, similar to prior. Christian Jason MD on May 29, 2017 at 14:59 Board Certified Radiologist. Board Certified Radiologist. This report was verified electronically.
[2017-05-29 15:08] LABS: AUTOMATED NEUTROPHIL # 4.5 TH/MM3 (1.8-7.7); BASOPHIL % 0.6 % (0.0-2.0); EOSINOPHIL # 0.1 TH/MM3 (0-0.4); EOSINOPHIL % 1.8 % (0.0-4.0); HEMATOCRIT 37.6 % (35.0-46.0); HEMO FLAGS DIFF FINAL; LYMPH % 22.9 % (9.0-44.0); LYMPHOCYTE # 1.7 TH/MM3 (1.0-4.8); MEAN CELL VOLUME 89.6 FL (80.0-100.0); MEAN CORPUSCULAR HEMOGLOBIN 29.2 PG (27.0-34.0); MEAN CORPUSCULAR HGB CONC 32.6 % (32.0-36.0); MONO % 15.4 % (0.0-8.0); NEUT % 59.3 % (16.0-70.0); PLATELET COUNT 178 TH/MM3 (150-450); RED CELL DISTRIBUTION WIDTH 13.6 % (11.6-17.2); WHITE BLOOD COUNT 7.5 TH/MM3 (4.0-11.0)
[2017-05-29 15:15] LABS: CHLORIDE 105 MEQ/L (98-107); POTASSIUM 4.1 MEQ/L (3.5-5.1); SODIUM (NA) 138 MEQ/L (136-145)
[2017-05-29 15:18] LABS: ANION GAP 9 MEQ/L (5-15); BICARBONATE 23.8 MEQ/L (21.0-32.0); BLOOD UREA NITROGEN 23 MG/DL (7-18)
[2017-05-29 15:20] LABS: APTT (PATIENT) 27.1 SEC (24.3-30.1); PROTHROMBIN TIME - PATIENT 10.9 SEC (9.8-11.6)
[2017-05-29 15:21] LABS: ALT (GPT) 39 U/L (10-53); AST (GOT) 31 U/L (15-37); GLOMERULAR FILTRATION RATE 39 ML/MIN (>89)
[2017-05-29 15:23] LABS: TOTAL BILIRUBIN ADULT 1.3 MG/DL (0.2-1.0)
[2017-05-29 15:24] LABS: ALKALINE PHOSPHATASE 132 U/L (45-117)
[2017-05-29] MEDS ORDERED: FUROSEMIDE 100 MG/10 ML VIAL IV PUSH ONE (16:00)
[2017-05-29 16:15] VITALS: BP 151/99; PULSE 92; RESP 16; O2SAT 94
--- NOTE | 2017-05-29 21:06 | EKG ---
Date Performed: 05/29/2017 Time Performed: 14:28:06 PTAGE: 87 years EKG: ATRIAL FIBRILLATION WITH RAPID VENTRICULAR RESPONSE LEFT ANTERIOR FASCICULAR BLOCK NONSPECI FIC LATERAL T WAVE CHANGES ABNORMAL ECG PREVIOUS TRACING : 02/22/2017 19.36 No significant change from previous tracing noted. DOCTOR: Ricardo Lou Interpretating Date/Time 05/29/2017 21:04:29
== END 2017-05-29 16:37 | disposition home or self-care (01) ==
LOC: PHED 12:43
DX: I11.0 Hypertensive heart disease with heart failure (principal); I50.9 Heart failure, unspecified; Z79.01 Long term (current) use of anticoagulants
CPT/HCPCS: 71010; 80053; 83880; 84484; 85025; 85610; 85730; 87804; 93005; 96374; 99285; J1940

== ENCOUNTER 2017-12-05 17:58 | Inpatient (IN) | payer MEDICARE ==
[2017-12-05 19:11] VITALS: BP 172/99; PULSE 63; RESP 18; TEMP 97.2; O2SAT 94
--- NOTE | 2017-12-05 20:12 | PD ---
HPI Chief Complaint: Hypertension Time Seen by Provider: 19:47 Travel History International Travel<30 days: No Contact w/Intl Traveler<30days: No Traveled to known affect area: No History of Present Illness HPI The patient is an 87 year old female who presents to the [facility] emergency department with a history of generalized weakness, progressive dyspnea on exertion, sensation of fullness in her anterior neck that began 3 days ago. The weakness became much worse today and the patient has basically been laying on the couch for most of the day. She has a chronic cough that is been no worse than usual. Her recent medical history is significant for elevated liver and kidney enzymes according to her daughter. She saw her primary care physician, Dr. Johnson this past week and her furosemide and potassium supplementation were stopped. The patient has a prior history of congestive heart failure and atrial fibrillation. The patient is chronically anticoagulated on Eliquis. The patient's daughter has been keeping a close eye on her blood pressure reports that it has been higher than usual. Her blood pressure is normally in the 120s over 80s, however over the past week it is been elevated and was at its highest earlier today with a systolic of 225. The patient reports that earlier today she did have a headache over her forehead. She denies having any headache currently. She denies having any one-sided weakness, slurred speech, facial droop, difficulty with word finding ability, vision changes, or new numbness or tingling to her extremities. On review of systems otherwise, she denies having any known recent fevers, increased congestion, neck stiffness, chest pain, abdominal pain, vomiting, diarrhea, urinary symptoms, or neurologic symptoms. Her last bowel movement was earlier today. [facility] Past Medical History Narrative Medical The patient's past medical history is significant for hypertension, hyperlipidemia, coronary artery disease status post stent placement, congestive heart failure, atrial fibrillation, history of lymphoma in remission for the last 3 years, chronic renal insufficiency, history of diverticulitis, history of lymphoma, currently in remission for the last 3 years. The patient's last 2D echo done at this facility was done in February 2017 and showed global hypokinesis with an ejection fraction of 25%. Hx Anticoagulant Therapy: Yes Arthritis: Yes Asthma: No Atrial Fibrillation: Yes Heart Rhythm Problems: Yes (A-fib) Cancer: Yes (LYMPHOMA ) Cardiac Catheterization: Yes Cardiovascular Problems: Yes High Cholesterol: Yes Chemotherapy: Yes (2015; [facility]) Chest Pain: Yes Congestive Heart Failure: Yes Coronary Artery Disease: Yes Diabetes: No Diminished Hearing: Yes Diverticulitis: Yes Endocrine: No Gastrointestinal Disorders: Yes (COLOSTOMY, DIVERTICULOSIS) GERD: Yes Genitourinary: No Hiatal Hernia: No Hypertension: Yes Immune Disorder: No Musculoskeletal: Yes Neurologic: No Psychiatric: No Reproductive: No Respiratory: Yes Immunizations Current: Yes Myocardial Infarction: Yes Radiation Therapy: No Sleep Apnea: Yes Thyroid Disease: No Ulcer: No Menopausal: Yes Past Surgical History Narrative Surgical The patient's past surgical history is significant for AICD placement, appendectomy, cholecystectomy, cardiac catheterization with stent placement 2, cataract surgery, right hip replacement 2, left hip surgery 1, history of partial colectomy with colostomy placement related to diverticulitis. Abdominal Surgery: Yes (COLECTOMY, COLOSTOMY, perforated bowl r/t diverticulitis) AICD: Yes Appendectomy: Yes Cardiac Surgery: Yes (CARDIAC STENTS X 1 2010) Cholecystectomy: Yes Coronary Stent: Yes (x 2) Ear Surgery: No Endocrine Surgery: No Eye Surgery: Yes (CATARACT SURGERY) Genitourinary Surgery: No Gynecologic Surgery: No Joint Replacement: Yes (RIGHT HIP REPLACEMENT X 2, LEFT HIP X 1) Oral Surgery: No Pacemaker: No Thoracic Surgery: No Other Surgery: Yes (PORT FOR CHEMO D/C 2015 ) Social History Alcohol Use: No Tobacco Use: No Substance Use: No Allergies-Medications (Allergen,Severity, Reaction): Coded Allergies: ciprofloxacin (Unverified Allergy, Severe, HALLUCINATIONS, 12/05/17) *MDRO Multi-Drug Resistant Organism (Verified Adverse Reaction, Unknown, ) 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 Reported Meds & Prescriptions Reported Meds & Active Scripts Active Amiodarone (Amiodarone HCl) 200 Mg Tab 200 Mg PO DAILY Reported Carvedilol 6.25 Mg Tab 6.25 Mg PO BID Probiotic (Lactobacillus Acidophilus) 1 Cap Cap 1 Cap PO DAILY Magnesium Oxide 400 Mg Tab 400 Mg PO DAILY Potassium Chloride ER (Potassium Chloride) 10 Meq Cap 10 Meq PO DAILY Furosemide 40 Mg Tab 40 Mg PO DAILY Lisinopril 5 Mg Tab 5 Mg PO DAILY Eliquis (Apixaban) 2.5 Mg Tab 2.5 Mg PO BID Nexium (Esomeprazole DR) 20 Mg Capdr 20 Mg PO BID Atorvastatin (Atorvastatin Calcium) 20 Mg Tab 10 Mg PO HS Review of Systems Except as stated in HPI: all other systems reviewed are Neg General / Constitutional: No: Fever Eyes: No: Visual changes HENT: Positive: Neck Pain, No: Headaches, Rhinorrhea, Congestion, Neck Stiffness Cardiovascular: Positive: Dyspnea on exertion, No: Chest Pain or Discomfort Respiratory: Positive: Shortness of Breath, No: Cough Gastrointestinal: No: Nausea, Vomiting, Diarrhea, Abdominal Pain Genitourinary: No: Dysuria Musculoskeletal: No: Pain Skin: No Rash Neurologic: Positive: Weakness (Generalized weakness), No: Focal Abnormalities , Change in Mentation, Slurred Speech Psychiatric: No: Depression Endocrine: No: Polydipsia Hematologic/Lymphatic: No: Easy Bruising Physical Exam Narrative General: The patient is a well-developed well-nourished female in no acute distress Head and Neck exam: Head is normocephalic atraumatic. Eyes: EOMI, pupils are equal round and reactive to light. Nose: Midline septum with pink mucous membranes Mouth: Dentition unremarkable. Moist mucus membranes. Posterior oropharynx is not erythematous. No tonsillar hypertrophy. Uvula midline. Airway patent. Neck: No palpable lymphadenopathy. No nuchal rigidity. No thyromegaly. Cardiovascular: Regular rate and rhythm without murmurs, gallops, or rubs. No pulse deficit to the extremities on simultaneous auscultation and palpation of her radial artery. Lungs: Clear to auscultation bilaterally. No wheezes, rhonchi, or rales. Abdomen: Soft, without tenderness to palpation in all 4 quadrants of the abdomen. No guarding, rebound, or rigidity. Normal bowel sounds are audible. No tenderness on palpation of McBurney's point. Negative Oakes sign. Extremities: No clubbing, cyanosis, or edema. 2+ pulses in all 4 extremities. No calf tenderness on palpation peer Back: No spinous process tenderness to palpation. No costovertebral angle tenderness to palpation. Neurologic Exam: Cranial nerves 2-12 were intact on exam. Strength is 5/5 in all 4 extremities. No sensory deficits noted. The patient has decreased range of motion in the right shoulder that is chronic related to a prior right shoulder injury years ago. Skin Exam: No rash noted. Intact skin that is warm and dry. Data Data Last Documented VS Vital Signs Date Time Temp Pulse Resp B/P (MAP) Pulse Ox O2 Delivery O2 Flow Rate FiO2 12/05/17 21:10 60 20 158/67 (97) 97 Nasal Cannula 2.00 12/05/17 19:11 97.2 Orders Orders Electrocardiogram (12/05/17 20:00) Complete Blood Count With Diff (12/05/17 20:00) Comprehensive Metabolic Panel (12/05/17 20:00) Creatine Kinase (Cpk) (12/05/17 20:00) Ckmb (Isoenzyme) Profile (12/05/17 20:00) Troponin I (12/05/17 20:00) B-Type Natriuretic Peptide (12/05/17 20:00) Prothrombin Time / Inr (Pt) (12/05/17:00) Act Partial Throm Time (Ptt) (12/05/17 20:00) C-Reactive Protein (Crp) (12/05/17 20:00) Lipase (12/05/17 20:00) Urinalysis - C+S If Indicated (12/05/17 20:00) Magnesium (Mg) (12/05/17 20:00) Thyroid Stimulating Hormone (12/05/17 20:00) Chest, Single Ap (12/05/17 20:00) Ct Brain W/O Iv Contrast(Rout) (12/05/17 20:00) Iv Access Insert/Monitor (12/05/17 20:00) Ecg Monitoring (12/05/17 20:00) Oximetry (12/05/17 20:00) Oxygen Administration (12/05/17 20:11) Furosemide Inj (Lasix Inj) (12/05/17 20:45) CKMB (12/05/17 20:20) CKMB% (12/05/17 20:20) Aspirin Chew (Aspirin Chew) (12/05/17 21:30) Admit Order (Ed Use Only) (12/05/17 22:04) Admit To Inpatient (12/05/17 ) Vital Signs (Adult) ROXANNE.Q4H (12/05/17 22:06) Activity Oob With Assistance (12/05/17 22:06) [employer] Room / Telemetry ROXANNE.Q8H (12/05/17 22:06) Intake + Output 06,14,22 (12/05/17 22:06) Notify Dr: Other (12/05/17 22:06) Resp Oxygen Moisés C Titrat 1-4 L (12/05/17 ) Inpatient Certification (12/05/17 ) Labs Laboratory Tests Test 12/05/17 20:20 12/05/17 21:45 White Blood Count 5.8 TH/MM3 Red Blood Count 3.84 MIL/MM3 Hemoglobin 11.5 GM/DL Hematocrit 34.8 % Mean Corpuscular Volume 90.6 FL Mean Corpuscular Hemoglobin 30.0 PG Mean Corpuscular Hemoglobin Concent 33.2 % Red Cell Distribution Width 15.8 % Platelet Count 181 TH/MM3 Mean Platelet Volume 8.5 FL Neutrophils (%) (Auto) 57.3 % Lymphocytes (%) (Auto) 26.0 % Monocytes (%) (Auto) 13.6 % Eosinophils (%) (Auto) 2.4 % Basophils (%) (Auto) 0.7 % Neutrophils # (Auto) 3.3 TH/MM3 Lymphocytes # (Auto) 1.5 TH/MM3 Monocytes # (Auto) 0.8 TH/MM3 Eosinophils # (Auto) 0.1 TH/MM3 Basophils # (Auto) 0.0 TH/MM3 CBC Comment DIFF FINAL Differential Comment Prothrombin Time 10.5 SEC Prothromb Time International Ratio 1.0 RATIO Activated Partial Thromboplast Time 26.5 SEC Blood Urea Nitrogen 18 MG/DL Creatinine 1.38 MG/DL Random Glucose 113 MG/DL Total Protein 6.7 GM/DL Albumin 3.5 GM/DL Calcium Level 8.6 MG/DL Magnesium Level 2.2 MG/DL Alkaline Phosphatase 99 U/L Aspartate Amino Transf (AST/SGOT) 36 U/L Alanine Aminotransferase (ALT/SGPT) 41 U/L Total Bilirubin 0.8 MG/DL Sodium Level 142 MEQ/L Potassium Level 4.3 MEQ/L Chloride Level 109 MEQ/L Carbon Dioxide Level 21.6 MEQ/L Anion Gap 11 MEQ/L Estimat Glomerular Filtration Rate 36 ML/MIN Total Creatine Kinase 111 U/L Creatine Kinase MB 2.0 NG/ML Troponin I 0.02 NG/ML C-Reactive Protein 0.53 MG/DL B-Type Natriuretic Peptide 810 PG/ML Lipase 96 U/L Thyroid Stimulating Hormone 3rd Gen 6.430 uIU/ML Urine Color YELLOW Urine Turbidity HAZY Urine pH 6.5 Urine Specific [place] 1.012 Urine Protein TRACE mg/dL Urine Glucose (UA) NEG mg/dL Urine Ketones NEG mg/dL Urine Occult Blood TRACE Urine Nitrite NEG Urine Bilirubin NEG Urine Urobilinogen LESS THAN 2.0 MG/DL Urine Leukocyte Esterase LARGE Urine RBC 1 /hpf Urine WBC 125 /hpf Urine Squamous Epithelial Cells 4 /hpf Urine Amorphous Sediment RARE Urine Bacteria MOD /hpf Microscopic Urinalysis Comment CULTURE INDICATED MDM Medical Decision Making Medical Screen Exam Complete: Yes Emergency Medical Condition: Yes Medical Record Reviewed: Yes Differential Diagnosis Hyperkalemia related to patient's renal insufficiency, versus congestive heart failure exacerbation, versus pulmonary embolism, versus acute coronary syndrome , versus intracranial hemorrhage, versus uremia Narrative Course During the course of the patient's emergency department visit, the patient's history, examination, and differential diagnosis were reviewed with the patient. The patient was placed on a laboratory monitor with oximetry and frequent blood pressure monitoring. The patient had IV access obtained and blood work sent for analysis. The patient on arrival into the room is saturating 89 room air. The patient is not on home oxygen. The patient was placed on 2 L nasal cannula O2 by al. The patient had a EKG done on arrival that shows an electronic atrial paced rhythm, electronic ventricular pacemaker in place, heart rate of 60, QRS duration 180 ms, QTC [address] segment elevation. The patient was initially provided Lasix 40 mg IV, aspirin 81 mg p.o. 1 The patient's laboratory studies were reviewed and remarkable for a white count of 5.8, hemoglobin 11.5, platelets 181 with 13.6 monocytes, CMP is remarkable for chloride of 109, creatinine 1.38, glucose 113, initial set of cardiac enzymes are within normal limits, however BNP is elevated at 810 with congestive heart failure noted on chest x-ray consistent with CHF exacerbation, C-reactive protein 0.53, lipase within normal limits, TSH is elevated at 6.43 which could be contributing to the patient's fatigue, PT 10.5, PTT 26.5. Radiology studies were reviewed and remarkable for Last Impressions Head CT 12/05/171999 Signed Impressions: CONCLUSION: 1. No acute intracranial abnormalities. Chest X-Ray 12/05/171999 Signed Impressions: CONCLUSION: Mild congestive heart failure. The patient will be admitted to the hospital for continued evaluation and treatment of hypoxemia on room air related to a congestive heart failure exacerbation. The patient's results were discussed with the patient, including the plan of care. I explained that further testing and/ or monitoring is indicated based on the patient's history, examination, and/ or laboratory findings. Therefore, I recommended admission for additional evaluation. The patient expressed understanding and was agreeable with this plan. The patient was admitted to the hospital in stable condition and sent to a bed under the care of the family practice residents. Physician Communication Physician Communication The patient's case including history, pertinent physical examination findings, and laboratory studies were discussed with the family practice residents. It was agreed that the patient would be admitted to the family practice service. Diagnosis Primary Impression: Shortness of breath Additional Impressions: Acute exacerbation of congestive heart failure Qualified Codes: I50.23 - Acute on chronic systolic (congestive) heart failure Hypoxemia Admitting Information Admitting Physician Requests: Observation Pearl Lopez MD Dec 05, 2017 20:12
[2017-12-05 20:25] VITALS: BP 155/72; PULSE 67; RESP 20; O2SAT 97
--- NOTE | 2017-12-05 20:36 | RADRPT ---
EXAM DATE: 12/05/2017 8:29 PM EDT AGE/SEX: 87 years / Female INDICATIONS: Short of breath. CLINICAL DATA: This is the patient's initial encounter. Patient reports that signs and symptoms have been present for 1 day and indicates a pain score of 0/10. MEDICAL/SURGICAL HISTORY: . A-fib. Pacemaker. COMPARISON: [facility], CHEST SINGLE AP, 05/29/2017. . FINDINGS: Cardiomegaly. Pacer leads overlie right atrium and right ventricle. Interstitial prominence most ed acteristic of mild pulmonary edema. Trace pleural fluid. CONCLUSION: Mild congestive heart failure. Electronically signed by: Elliott Quach MD 12/05/2017 8:34 PM EDT
[2017-12-05] MEDS ORDERED: FUROSEMIDE 40 MG/4 ML VIAL IV PUSH ONE (20:45)
[2017-12-05 20:51] LABS: AUTOMATED NEUTROPHIL # 3.3 TH/MM3 (1.8-7.7); BASOPHIL % 0.7 % (0.0-2.0); EOSINOPHIL # 0.1 TH/MM3 (0-0.4); EOSINOPHIL % 2.4 % (0.0-4.0); HEMATOCRIT 34.8 % (35.0-46.0); HEMOGLOBIN 11.5 GM/DL (11.6-15.3); LYMPHOCYTE # 1.5 TH/MM3 (1.0-4.8); MEAN CELL VOLUME 90.6 FL (80.0-100.0); MEAN CORPUSCULAR HGB CONC 33.2 % (32.0-36.0); MEAN PLATELET VOLUME 8.5 FL (7.0-11.0); MONO % 13.6 % (0.0-8.0); MONOCYTE # 0.8 TH/MM3 (0-0.9); NEUT % 57.3 % (16.0-70.0); PLATELET COUNT 181 TH/MM3 (150-450); RED BLOOD COUNT 3.84 MIL/MM3 (4.00-5.30); RED CELL DISTRIBUTION WIDTH 15.8 % (11.6-17.2); WHITE BLOOD COUNT 5.8 TH/MM3 (4.0-11.0)
--- NOTE | 2017-12-05 20:55 | RADRPT ---
EXAM DATE: 12/05/2017 8:51 PM EDT AGE/SEX: 87 years / Female INDICATIONS: Headaches with high blood pressure. CLINICAL DATA: This is the patient's initial encounter. Patient reports that signs and symptoms have been present for 1 day and indicates a pain score of 6/10. MEDICAL/SURGICAL HISTORY: Cardiovascular disease. Hypertension. Cholecystectomy. Colostomy. RADIATION DOSE: 32.83 CTDI (mGy) COMPARISON: No prior [facility] exams available for comparison. TECHNIQUE: CT of the head without contrast. Using automated exposure control and adjustment of the mA and/or kV according to patient size, radiation dose was kept as low as reasonably achievable to ob tain optimal diagnostic quality images. FINDINGS: Cerebrum: The ventricles are normal for age. No evidence of midline shift, mass lesion, hemorrhage or acute infarction. No extraaxial fluid collections are seen. Posterior Fossa: The cerebellum and brainstem are intact. The 4th ventricle is midline. The cerebe llopontine angle is unremarkable. Extracranial: The visualized portion of the orbits is intact. Skull: The calvaria is intact. No evidence of skull fracture. CONCLUSION: 1. No acute intracranial abnormalities. Electronically signed by: Elliott Quach MD 12/05/2017 8:54 PM EDT
[2017-12-05] MEDS: PANTOPRAZOLE SOD 20 MG DELAYED RELEASE TAB PO SCH (21:00)
[2017-12-05 21:03] LABS: PROTHROMBIN TIME - PATIENT 10.5 SEC (9.8-11.6)
[2017-12-05 21:10] VITALS: BP 158/67; PULSE 60; RESP 20; O2SAT 97
[2017-12-05 21:19] LABS: ALBUMIN 3.5 GM/DL (3.4-5.0); ALKALINE PHOSPHATASE 99 U/L (45-117); ALT (GPT) 41 U/L (10-53); AST (GOT) 36 U/L (15-37); BICARBONATE 21.6 MEQ/L (21.0-32.0); BLOOD UREA NITROGEN 18 MG/DL (7-18); C-REACTIVE PROTEIN 0.53 MG/DL (0.00-0.30); CALCIUM 8.6 MG/DL (8.5-10.1); CHLORIDE 109 MEQ/L (98-107); CREATININE 1.38 MG/DL (0.50-1.00); GLOMERULAR FILTRATION RATE 36 ML/MIN (>89); GLUCOSE,RANDOM 113 MG/DL (74-106); MAGNESIUM 2.2 MG/DL (1.5-2.5); SODIUM (NA) 142 MEQ/L (136-145); TOTAL BILIRUBIN ADULT 0.8 MG/DL (0.2-1.0); TOTAL PROTEIN 6.7 GM/DL (6.4-8.2); TROPONIN I 0.02 NG/ML (0.02-0.05)
[2017-12-05] MEDS ORDERED: ASPIRIN 81 MG CHEW TAB CHEW ONE (21:30)
--- NOTE | 2017-12-05 22:12 | HHI.HP ---
[facility] Service Family Medicine Primary Care Physician Fatou Johnson MD Admission Diagnosis CHF exacerbation Diagnoses: International Travel<30 Days: No Contact w/Intl Traveler<30days: No Known Affected Area: No History of Present Illness Mrs. Kramer is a 87-year-old female presenting to the ED with chief complaint of shortness of breath. She is accompanied by her daughter who assists in the history. Patient states that since awakening this morning, she has had dizziness, shortness of breath, and neck fullness with mild chest pain. She states that as the day progressed, her chest pain resolved however her shortness of breath and dizziness remained. The chest pain was not accompanied by nausea/vomiting, diaphoresis, or acute increase in shortness of breath. She reports that she was only able to walk "a couple of feet" before becoming extremely out of breath throughout the day and ultimately decided to present to the ED for further evaluation. She goes on to say that she has had a dry cough with shortness of breath over the last 3 weeks especially at night when lying flat. This is resulted in her attempting to sleep upright on her couch each night. Upon further questioning, she notes that her PCP, Dr. Johnson, recently discontinued her Lasix with potassium supplementation due to elevated renal function. Per brief chart review, patient's most recent echocardiogram was completed in February of 2017 showing global hypokinesis with an ejection fraction of 25%. (Cristino Sanchez MD R2) Review of Systems Constitutional: DENIES: Fever, Chills Eyes: DENIES: Blurred vision, Double Vision Ears, nose, mouth, throat: DENIES: Throat pain, Running Nose Respiratory: COMPLAINS OF: Cough, Shortness of breath, DENIES: Sputum production Cardiovascular: COMPLAINS OF: Chest pain, DENIES: Palpitations Gastrointestinal: DENIES: Abdominal pain, Diarrhea, Nausea, Vomiting Genitourinary: DENIES: Urinary frequency, Dysuria Musculoskeletal: DENIES: Joint pain Integumentary: DENIES: Rash Hematologic/lymphatic: DENIES: Lymphadenopathy Immunologic/allergic: DENIES: Urticaria Neurologic: DENIES: Headache Psychiatric: DENIES: Mood changes (Cristino Sanchez MD R2) Past Family Social History Past Medical History Lymphoma s/p treatment cancer free since 2014 - oncologist Hernesto sanchez [facility] diagnosed s/p hip operation in 2015, f/u by CHF - diagnosed in 2016, f/u by Cholostomy - 2013 s/p diverticulitis , no plans for re-anastamosis Osteoarthritis: worst at shoulder joints, also knee and hip x 5 - no complications Past Surgical History cholostomy s/p diverticulitis 2013 hip surgery 1 year ago (revision 2016) multiple hip surgeries 8 yrs ago s/p fall (4 on R hip, 1 left hip) - fx of femur involved per pt Defibrillator placement (Cristino Sanchez MD R2) Allergies: Coded Allergies: ciprofloxacin (Unverified Allergy, Severe, HALLUCINATIONS, 12/05/17) *MDRO Multi-Drug Resistant Organism (Verified Adverse Reaction, Unknown, ) 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 Patient denies any tobacco, alcohol, or illicit drug use. (Cristino Sanchez MD R2) Physical Exam Vital Signs Vital Signs Date Time Temp Pulse Resp B/P (MAP) Pulse Ox O2 Delivery O2 Flow Rate FiO2 12/05/17 21:10 60 20 158/67 (97) 97 Nasal Cannula 2.00 12/05/17 20:25 67 20 155/72 (99) 97 Nasal Cannula 2.00 12/05/17 20:25 97 Nasal Cannula 2.00 12/05/17 19:11 97.2 63 18 172/99 (123) 94 Physical Exam GENERAL: Elderly female patient lying in bed with daughter at bedside in mild respiratory distress. SKIN: Cool and dry. No rash. HEENT: Atraumatic, normocephalic with extraocular motions intact. No rhinorrhea. No visible lymphadenopathy or jugulovenous distension appreciated. CARDIOVASCULAR: Regular rate and rhythm without obvious murmurs, gallops, or rubs. 2+ pulses in all four extremities. RESPIRATORY: Decreased aeration to the bilateral lung sifuentes with very fine crackles. Mild increased work of breathing with accessory muscle use, no belly breathing. Patient able to converse and short complete sentences. GASTROINTESTINAL: Abdomen soft, non-tender, nondistended with positive bowel sounds. 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 No masses appreciated. MUSCULOSKELETAL: No cyanosis or edema. No calf tenderness. NEURO/PSYCH: Afocal. Awake, alert, and oriented x3. Normal speech and judgement. Laboratory Laboratory Tests Test 12/05/17 20:20 White Blood Count 5.8 Red Blood Count 3.84 Hemoglobin 11.5 Hematocrit 34.8 Mean Corpuscular Volume 90.6 Mean Corpuscular Hemoglobin 30.0 Mean Corpuscular Hemoglobin Concent 33.2 Red Cell Distribution Width 15.8 Platelet Count 181 Mean Platelet Volume 8.5 Neutrophils (%) (Auto) 57.3 Lymphocytes (%) (Auto) 26.0 Monocytes (%) (Auto) 13.6 Eosinophils (%) (Auto) 2.4 Basophils (%) (Auto) 0.7 Neutrophils # (Auto) 3.3 Lymphocytes # (Auto) 1.5 Monocytes # (Auto) 0.8 Eosinophils # (Auto) 0.1 Basophils # (Auto) 0.0 CBC Comment DIFF FINAL Differential Comment Prothrombin Time 10.5 Prothromb Time International Ratio 1.0 Activated Partial Thromboplast Time 26.5 Blood Urea Nitrogen 18 Creatinine 1.38 Random Glucose 113 Total Protein 6.7 Albumin 3.5 Calcium Level 8.6 Magnesium Level 2.2 Alkaline Phosphatase 99 Aspartate Amino Transf (AST/SGOT) 36 Alanine Aminotransferase (ALT/SGPT) 41 Total Bilirubin 0.8 Sodium Level 142 Potassium Level 4.3 Chloride Level 109 Carbon Dioxide Level 21.6 Anion Gap 11 Estimat Glomerular Filtration Rate 36 Total Creatine Kinase 111 Creatine Kinase MB 2.0 Troponin I 0.02 C-Reactive Protein 0.53 B-Type Natriuretic Peptide 810 Lipase 96 Thyroid Stimulating Hormone 3rd Gen 6.430 (Cristino Sanchez MD R2) Result Diagram: 12/05/17201912/05/172019 Imaging Last [address] 12/05/171999 Signed Impressions: CONCLUSION: 1. No acute intracranial abnormalities. Chest X-Ray 12/05/171999 Signed Impressions: CONCLUSION: Mild congestive heart failure. (Cristino Sanchez MD R2) Caprini VTE Risk Assessment Caprini VTE Risk Assessment: Mod/High Risk (score >= 2) Caprini Risk Assessment Model Point Value = 1 Point Value = 2 Point Value = 3 Point Value = 5 Age 41-60 Minor surgery BMI > 25 kg/m2 Swollen legs Varicose veins or History of unexplained or recurrent spontaneous Oral contraceptives or hormone replacement Sepsis (< 1 month) Serious lung disease, including pneumonia (< 1 month) Abnormal pulmonary function Acute myocardial infarction Congestive heart failure (< 1 month) History of inflammatory bowel disease Medical patient at bed rest Age 61-74 Arthroscopic surgery Major open surgery (> 45 min) Laparoscopic surgery (> 45 min) Malignancy Confined to bed (> 72 hours) Immobilizing plaster cast Central venous access Age >= 75 History of VTE Family history of VTE Factor V Leiden Prothrombin [id number] Lupus anticoagulant Anticardiolipin antibodies Elevated serum homocysteine Heparin-induced thrombocytopenia Other congenital or acquired thrombophilia Stroke (< 1 month) Elective arthroplasty Hip, pelvis, or leg fracture Acute spinal cord injury (< 1 month) Prophylaxis Regimen Total Risk Factor Score Risk Level Prophylaxis Regimen 0-1 Low Early ambulation 2 Moderate Order ONE of the following: *Sequential Compression Device (SCD) *Heparin 5000 units SQ BID 3-4 Higher Order ONE of the following medications: *Heparin 5000 units SQ TID *Enoxaparin/Lovenox 40 mg SQ daily (WT < 150 kg, CrCl > 30 mL/min) *Enoxaparin/Lovenox 30 mg SQ daily (WT < 150 kg, CrCl > 10-29 mL/min) *Enoxaparin/Lovenox 30 mg SQ BID (WT < 150 kg, CrCl > 30 mL/min) AND/OR *Sequential Compression Device (SCD) 5 or more Highest Order ONE of the following medications: *Heparin 5000 units SQ TID (Preferred with Epidurals) *Enoxaparin/Lovenox 40 mg SQ daily (WT < 150 kg, CrCl > 30 mL/min) *Enoxaparin/Lovenox 30 mg SQ daily (WT < 150 kg, CrCl > 10-29 mL/min) *Enoxaparin/Lovenox 30 mg SQ BID (WT < 150 kg, CrCl > 30 mL/min) AND *Sequential Compression Device (SCD) (Cristino Sanchez MD R2) Assessment and Plan Assessment and Plan Mrs. Kramer is a 87-year-old female presenting to the ED with chief complaint of shortness of breath consistent with acute on chronic CHF exacerbation. Code Status Full Code Discussed Condition With Dr. Rick, ED physician (Cristino Sanchez MD R2) Attending Attestation THIS CASE WAS DISCUSSED WITH THE RESIDENT PHYSICIANS. I HAVE REVIEWED THE RECORD AND AGREE WITH THE ABOVE NOTE AND PLAN OF CARE WAS DISCUSSED. I HAVE AUTHORIZED THE ORDER FOR ADMISSION TO AN IN-PATIENT STATUS. (Jorge French MD) Problem List: (1) Acute exacerbation of congestive heart failure ICD Codes: I50.9 - Heart failure, unspecified Status: Acute Plan: -Chest x-ray: Mild congestive heart failure -BNP: 810 -Echocardiogram 02/17: Mildly dilated left ventricle with normal wall thickness. Left ventricular systolic function severely reduced with an ejection fraction of 25%. Global left ventricular hypokinesis. Moderate thickening and calcification of the posterior mitral valve leaflet. Mild mitral valve regurgitation. Mitral annular calcification present. Mild thickening and calcification of the aortic valve leaflets. Mild tricuspid valve regurgitation. No pericardial effusion. -Repeat echocardiogram ordered -Telemetry Medications: -Lasix 40 mg IV given once in ED -Per chart review, patient historically has responded well to IV diuresis. Plan to evaluate patient tomorrow a.m. for further IV diuresis versus starting home oral diuretic. Continue to monitor renal function with potassium. (2) Chest pain ICD Codes: R07.9 - Chest pain, unspecified Status: Resolved Plan: -EKG: Paced rhythm of [address] segment or interval abnormalities. (Per medical team read) Trend x2 -Troponin: 0.02, trended 2 Medications: -Aspirin given in ED -Nitroglycerin/morphine as needed for chest pain (3) UTI (urinary tract infection) ICD Codes: N39.0 - Urinary tract infection, site not specified Status: Acute Plan: -UA: Hazy, trace occult blood, large leukocyte esterase, 125 white blood cells, moderate bacteria -Urine culture: Pending Medications: -Start Bactrim DS 1 tablet twice daily for 3 days (nitrofurantoin avoided due to creatinine clearance) (4) Atrial fibrillation ICD Codes: I48.91 - Unspecified atrial fibrillation Status: Chronic Plan: -Pacemaker in place per chest x-ray -Currently rate controlled Medications: -Continue amiodarone, carvedilol, and Eliquis for anticoagulation (5) Hypertension ICD Codes: I10 - Essential (primary) hypertension Status: Chronic Plan: Medications -Continue home lisinopril -Clonidine 0.1 mg as needed for blood pressure greater than 180/110 (6) Elevated serum creatinine ICD Codes: R79.89 - Other specified abnormal findings of blood chemistry Status: Acute Plan: Per chart review, creatinine baseline roughly 1.1-1.2. -CMP: 1.38 -Avoid nephrotoxic agents -Patient currently fluid overloaded, avoid nonessential fluids -Patient placed on salt and fluid restriction diet (7) GERD (gastroesophageal reflux disease) ICD Codes: K21.9 - Gastro-esophageal reflux disease without esophagitis Status: Chronic Plan: Medications: -Continue Nexium 20 twice a day (8) Colostomy care ICD Codes: Z43.3 - Encounter for attention to colostomy Status: Chronic Plan: -Colostomy on exam without abnormality, currently producing good output. Site does not appear infected and is CDI. -Continue lactobacillus daily (9) FEN/PPX Status: Acute Plan: -Fluids: Restriction to 1500ml daily -Electrolytes: WNL, continue to monitor -Nutrition: Heart healthy diet with fluid and sodium restriction -DVT ppx: Eliquis, SCDs -Prophylaxis: Morphine/nitroglycerin for chest pain, clonidine as needed for blood pressure greater than 180/110, DuoNeb's as needed for shortness of breath , Tessalon Perles as needed for cough (Cristino Sanchez MD R2) Physician Certification 2 Midnight Certification Type: Admission for Inpatient Services Order for Inpatient Services The services are ordered in accordance with Medicare regulations or non- Medicare payer requirements, as applicable. In the case of services not specified as inpatient-only, they are appropriately provided as inpatient services in accordance with the 2-midnight benchmark. Estimated LOS (days): 3 3 days is the estimated time the patient will need to remain in the hospital, assuming treatment plan goals are met and no additional complications. Post-Hospital Plan: Home (Cristino Sanchez MD R2) Problem Qualifiers (1) Acute exacerbation of congestive heart failure: Qualified Codes: I50.23 - Acute on chronic systolic (congestive) heart failure (2) Chest pain: Qualified Codes: R07.1 - Chest pain on breathing (3) UTI (urinary tract infection): Qualified Codes: N30.00 - Acute cystitis without hematuria (4) Atrial fibrillation: Qualified Codes: I48.2 - Chronic atrial fibrillation (5) Hypertension: Qualified Codes: I10 - Essential (primary) hypertension (6) GERD (gastroesophageal reflux disease): Qualified Codes: K21.9 - Gastro-esophageal reflux disease without esophagitis Cristino Sanchez MD R2 Dec 05, 2017 22:12 Jorge French MD Dec 06, 2017 15:31
[2017-12-05] MEDS ORDERED: SODIUM CHLORIDE 0.9% FLUSH 10 ML FLUSH IV FLUSH PRN ×2 (22:15)
[2017-12-05 22:31] LABS: AMORPHOUS SEDIMENT, URINE RARE; BACTERIA, URINE MOD /hpf; BILIRUBIN, URINE NEG (NEG); BLOOD, URINE TRACE (NEG); GLUCOSE,URINE NEG (NEG); KETONE, URINE NEG (NEG); NITRITE,URINE NEG (NEG); PH, URINE 6.5 (5.0-8.5); SQUAMOUS EPITHELIAL CELL URINE 4 /hpf (0-5); URINE COLOR YELLOW (YELLW/STRAW); URINE LEUKOCYTE ESTERASE LARGE (NEG)
[2017-12-06] VITALS (10 sets, daily range): BP systolic 134–167; BP diastolic 64–78; PULSE 60–66; RESP 17–19; TEMP 97.5–98.5; O2SAT 92–97
[2017-12-06 03:05] LABS: AUTOMATED NEUTROPHIL # 2.7 TH/MM3 (1.8-7.7); BASOPHIL % 0.8 % (0.0-2.0); EOSINOPHIL # 0.1 TH/MM3 (0-0.4); EOSINOPHIL % 2.6 % (0.0-4.0); HEMATOCRIT 33.7 % (35.0-46.0); HEMOGLOBIN 11.3 GM/DL (11.6-15.3); LYMPH % 26.7 % (9.0-44.0); LYMPHOCYTE # 1.3 TH/MM3 (1.0-4.8); MEAN CELL VOLUME 90.3 FL (80.0-100.0); MEAN CORPUSCULAR HEMOGLOBIN 30.3 PG (27.0-34.0); MEAN CORPUSCULAR HGB CONC 33.6 % (32.0-36.0); MEAN PLATELET VOLUME 8.5 FL (7.0-11.0); MONO % 14.6 % (0.0-8.0); MONOCYTE # 0.7 TH/MM3 (0-0.9); NEUT % 55.3 % (16.0-70.0); PLATELET COUNT 170 TH/MM3 (150-450); RED BLOOD COUNT 3.73 MIL/MM3 (4.00-5.30); RED CELL DISTRIBUTION WIDTH 15.5 % (11.6-17.2); WHITE BLOOD COUNT 4.9 TH/MM3 (4.0-11.0)
[2017-12-06 03:29] LABS: ALBUMIN 3.6 GM/DL (3.4-5.0); AST (GOT) 27 U/L (15-37); BICARBONATE 24.6 MEQ/L (21.0-32.0); BLOOD UREA NITROGEN 18 MG/DL (7-18); CALCIUM 8.6 MG/DL (8.5-10.1); CHLORIDE 107 MEQ/L (98-107); CREATININE 1.42 MG/DL (0.50-1.00); GLOMERULAR FILTRATION RATE 35 ML/MIN (>89); MAGNESIUM 2.2 MG/DL (1.5-2.5); SODIUM (NA) 142 MEQ/L (136-145)
[2017-12-06 03:34] LABS: GLUCOSE,RANDOM 88 MG/DL (74-106)
[2017-12-06 03:41] LABS: ALKALINE PHOSPHATASE 93 U/L (45-117); ALT (GPT) 39 U/L (10-53); TOTAL BILIRUBIN ADULT 0.7 MG/DL (0.2-1.0); TOTAL PROTEIN 6.6 GM/DL (6.4-8.2); TROPONIN I LESS THAN 0.02 NG/ML (0.02-0.05)
[2017-12-06] MEDS ORDERED: cloNIDine HCL 0.1 MG TAB PO PRN (03:45)
[2017-12-06] MEDS ORDERED: NITROGLYCERIN 0.4 MG SL 25 TABS/BTL SL PRN (04:15)
[2017-12-06] MEDS ORDERED: MORPHINE SULFATE 4 MG/ML INJ IV PUSH PRN (04:15)
[2017-12-06] MEDS ORDERED: BENZONATATE 100 MG CAP PO PRN (04:45)
[2017-12-06] MEDS ORDERED: RESP: ALBUTEROL 2.5 MG/IPRATROPIUM 0.5 MG NEB (PRN) NEB (04:45)
[2017-12-06] MEDS ORDERED: SODIUM CHLORIDE 0.9% FLUSH 10 ML FLUSH IV FLUSH SCH (09:00)
[2017-12-06] MEDS ORDERED: LISINOPRIL 5 MG TAB PO SCH (09:00)
[2017-12-06] MEDS: LACTOBACILLUS ACIDOPHILUS TAB PO SCH (10:41)
[2017-12-06] MEDS: MAGNESIUM OXIDE 400 MG TAB PO SCH (10:42)
[2017-12-06] MEDS: AMIODARONE 200 MG TAB PO SCH (10:42)
[2017-12-06] MEDS: PANTOPRAZOLE SOD 20 MG DELAYED RELEASE TAB PO SCH ×2 (10:42→20:27)
[2017-12-06] MEDS: SULFAMETHOXAZOLE-TRIMETHOPRIM DS 800-160 MG TAB PO SCH ×2 (10:42→20:27)
[2017-12-06] MEDS: SODIUM CHLORIDE 0.9% FLUSH 10 ML FLUSH IV FLUSH SCH ×2 (10:42→20:28)
--- NOTE | 2017-12-06 12:19 | HHI.HP ---
[facility] Service Family Medicine Primary Care Physician Fatou Johnson MD Admission Diagnosis CHF exacerbation Diagnoses: (1) Acute exacerbation of congestive heart failure (2) Chest pain (3) UTI (urinary tract infection) (4) Atrial fibrillation (5) Hypertension (6) Elevated serum creatinine (7) GERD (gastroesophageal reflux disease) (8) Colostomy care (9) FEN/PPX International Travel<30 Days: No Contact w/Intl Traveler<30days: No Known Affected Area: No History of Present Illness Patient examined with medical team during resident rounds this morning. Patient is feeling much better this morning and feels that her shortness of breath is pretty much resolved. She continues to use nasal cannula oxygen at 2 L and is saturating at 93-96%. She denies any chest pain or shortness of breath currently, she denies any fevers or chills, she denies any palpitations, she denies any lower extremity edema. She states that she did urinate "a lot" overnight with her diuresis. In summary, this is an 87-year-old female presenting to the hospital with aggressive shortness of breath and found to be in an acute CHF exacerbation. On day of presentation, patient endorses dizziness, shortness of breath, neck fullness, and some intermittent chest pain. She progressively became short of breath throughout the day and was not able to walk very far before becoming extremely short of breath and therefore decided to come to the hospital for further evaluation. She has a history of CHF and has been on Lasix for diuresis for a significant amount of time, however this was recently discontinued due to worsening renal function by her PCP. Her most recent echocardiogram was in 02/2017 showing an ejection fraction of 25%. Past Family Social History Past Medical History Lymphoma s/p treatment cancer free since 2014 - oncologist Hernesto sanchez eliqujuan antonio - Afibb diagnosed s/p hip operation in 2015, f/u by CHF - diagnosed in 2015, f/u by Cholostomy - 2013 s/p diverticulitis , no plans for re-anastamosis Osteoarthritis: worst at shoulder joints, also knee and hip x 5 - no complications Past Surgical History cholostomy s/p diverticulitis 2013 hip surgery 1 year ago (revision 2016) multiple hip surgeries 8 yrs ago s/p fall (4 on R hip, 1 left hip) - fx of femur involved per pt Defibrillator placement Allergies: Coded Allergies: ciprofloxacin (Unverified Allergy, Severe, HALLUCINATIONS, 12/05/17) *MDRO Multi-Drug Resistant Organism (Verified Adverse Reaction, Unknown, ) 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 Patient denies any tobacco, alcohol, or illicit drug use. Physical Exam Vital Signs Vital Signs Date Time Temp Pulse Resp B/P (MAP) Pulse Ox O2 Delivery O2 Flow Rate FiO2 12/06/17 08:00 97.9 60 19 157/78 (104) 96 12/06/17 04:00 97.5 60 17 166/76 (106) 93 12/06/17 03:45 60 12/06/17 00:30 97.6 60 19 167/78 (107) 94 12/06/17 00:29 60 12/05/17 23:15 12/05/17 21:10 60 20 158/67 (97) 97 Nasal Cannula 2.00 12/05/17 20:25 67 20 155/72 (99) 97 Nasal Cannula 2.00 12/05/17 20:25 97 Nasal Cannula 2.00 12/05/17 19:11 97.2 63 18 172/99 (123) 94 Physical Exam GENERAL: Elderly appearing female, lying in bed in no obvious distress. Breathing is nonlabored and she appears comfortable. SKIN: Cool and dry. No rash. HEENT: Atraumatic, normocephalic. No visible jugulovenous distension appreciated. CARDIOVASCULAR: Regular rate and rhythm without obvious murmurs, gallops, or rubs. RESPIRATORY: Decreased aeration to the bilateral lung sifuentes with very fine crackles. GASTROINTESTINAL: Abdomen soft, non-tender, nondistended with positive bowel sounds. 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 No masses appreciated. MUSCULOSKELETAL: No cyanosis or edema. No calf tenderness. NEURO/PSYCH: Awake, alert, and oriented x3. Laboratory Laboratory Tests Test 12/05/17 20:20 12/05/17 21:45 12/06/17 02:29 12/06/17 08:37 White Blood Count 5.8 4.9 Red Blood Count 3.84 3.73 Hemoglobin 11.5 11.3 Hematocrit 34.8 33.7 Mean Corpuscular Volume 90.6 90.3 Mean Corpuscular Hemoglobin 30.0 30.3 Mean Corpuscular Hemoglobin Concent 33.2 33.6 Red Cell Distribution Width 15.8 15.5 Platelet Count 181 170 Mean Platelet Volume 8.5 8.5 Neutrophils (%) (Auto) 57.3 55.3 Lymphocytes (%) (Auto) 26.0 26.7 Monocytes (%) (Auto) 13.6 14.6 Eosinophils (%) (Auto) 2.4 2.6 Basophils (%) (Auto) 0.7 0.8 Neutrophils # (Auto) 3.3 2.7 Lymphocytes # (Auto) 1.5 1.3 Monocytes # (Auto) 0.8 0.7 Eosinophils # (Auto) 0.1 0.1 Basophils # (Auto) 0.0 0.0 CBC Comment DIFF FINAL DIFF FINAL Differential Comment Prothrombin Time 10.5 Prothromb Time International Ratio 1.0 Activated Partial Thromboplast Time 26.5 Blood Urea Nitrogen 18 18 Creatinine 1.38 1.42 Random Glucose 113 88 Total Protein 6.7 6.6 Albumin 3.5 3.6 Calcium Level 8.6 8.6 Magnesium Level 2.2 2.2 Alkaline Phosphatase 99 93 Aspartate Amino Transf (AST/SGOT) 36 27 Alanine Aminotransferase (ALT/SGPT) 41 39 Total Bilirubin 0.8 0.7 Sodium Level 142 142 Potassium Level 4.3 3.7 Chloride Level 109 107 Carbon Dioxide Level 21.6 24.6 Anion Gap 11 10 Estimat Glomerular Filtration Rate 36 35 Total Creatine Kinase 111 Creatine Kinase MB 2.0 Troponin I 0.02 LESS THAN 0.02 LESS THAN 0.02 C-Reactive Protein 0.53 B-Type Natriuretic Peptide 810 Lipase 96 Thyroid Stimulating Hormone 3rd Gen 6.430 Urine Color YELLOW Urine Turbidity HAZY Urine pH 6.5 Urine Specific [place] 1.012 Urine Protein TRACE Urine Glucose (UA) NEG Urine Ketones NEG Urine Occult Blood TRACE Urine Nitrite NEG Urine Bilirubin NEG Urine Urobilinogen LESS THAN 2.0 Urine Leukocyte Esterase LARGE Urine RBC 1 Urine WBC 125 Urine Squamous Epithelial Cells 4 Urine Amorphous Sediment RARE Urine Bacteria MOD Microscopic Urinalysis Comment CULTURE INDICATED Date/Time Source Procedure Growth Status 6/4/18 21:45 Urine Random Urine Urine Culture Pending Received Result Diagram: 12/06/1722812/06/17228 Imaging Last [address] 12/05/171999 Signed Impressions: CONCLUSION: 1. No acute intracranial abnormalities. Chest X-Ray 12/05/171999 Signed Impressions: CONCLUSION: Mild congestive heart failure. Caprini VTE Risk Assessment Caprini VTE Risk Assessment: Mod/High Risk (score >= 2) Caprini Risk Assessment Model Point Value = 1 Point Value = 2 Point Value = 3 Point Value = 5 Age 41-60 Minor surgery BMI > 25 kg/m2 Swollen legs Varicose veins or History of unexplained or recurrent spontaneous Oral contraceptives or hormone replacement Sepsis (< 1 month) Serious lung disease, including pneumonia (< 1 month) Abnormal pulmonary function Acute myocardial infarction Congestive heart failure (< 1 month) History of inflammatory bowel disease Medical patient at bed rest Age 61-74 Arthroscopic surgery Major open surgery (> 45 min) Laparoscopic surgery (> 45 min) Malignancy Confined to bed (> 72 hours) Immobilizing plaster cast Central venous access Age >= 75 History of VTE Family history of VTE Factor V Leiden Prothrombin [id number] Lupus anticoagulant Anticardiolipin antibodies Elevated serum homocysteine Heparin-induced thrombocytopenia Other congenital or acquired thrombophilia Stroke (< 1 month) Elective arthroplasty Hip, pelvis, or leg fracture Acute spinal cord injury (< 1 month) Prophylaxis Regimen Total Risk Factor Score Risk Level Prophylaxis Regimen 0-1 Low Early ambulation 2 Moderate Order ONE of the following: *Sequential Compression Device (SCD) *Heparin 5000 units SQ BID 3-4 Higher Order ONE of the following medications: *Heparin 5000 units SQ TID *Enoxaparin/Lovenox 40 mg SQ daily (WT < 150 kg, CrCl > 30 mL/min) *Enoxaparin/Lovenox 30 mg SQ daily (WT < 150 kg, CrCl > 10-29 mL/min) *Enoxaparin/Lovenox 30 mg SQ BID (WT < 150 kg, CrCl > 30 mL/min) AND/OR *Sequential Compression Device (SCD) 5 or more Highest Order ONE of the following medications: *Heparin 5000 units SQ TID (Preferred with Epidurals) *Enoxaparin/Lovenox 40 mg SQ daily (WT < 150 kg, CrCl > 30 mL/min) *Enoxaparin/Lovenox 30 mg SQ daily (WT < 150 kg, CrCl > 10-29 mL/min) *Enoxaparin/Lovenox 30 mg SQ BID (WT < 150 kg, CrCl > 30 mL/min) AND *Sequential Compression Device (SCD) Assessment and Plan Assessment and Plan Mrs. Kramer is a 87-year-old female presenting to the ED with chief complaint of shortness of breath consistent with acute on chronic CHF exacerbation. Problem List: (1) Acute exacerbation of congestive heart failure ICD Codes: I50.9 - Heart failure, unspecified Status: Acute Plan: Chest x-ray shows cardiomegaly with interstitial prominence most characteristic of mild pulmonary edema -BNP: 810 -Troponin 0 0.023 Diuresis: Lasix 40 mg IV 1 given Transition to oral Lasix 20 mg p.o. daily Strict I's and O's Fluid restriction to 1.5 L Monitor daily weights Monitor on telemetry and continuous pulse ox Supplemental oxygen to keep oxygen saturation greater than 93%, wean as tolerated Echocardiogram 02/17: Mildly dilated left ventricle with normal wall thickness. Left ventricular systolic function severely reduced with an ejection fraction of 25%. Global left ventricular hypokinesis. Moderate thickening and calcification of the posterior mitral valve leaflet. Mild mitral valve regurgitation. Mitral annular calcification present. Mild thickening and calcification of the aortic valve leaflets. Mild tricuspid valve regurgitation. No pericardial effusion. -Repeat echocardiogram ordered (2) Chest pain ICD Codes: R07.9 - Chest pain, unspecified Status: Resolved Plan: EKG: Paced rhythm of [address] segment or interval abnormalities. ( Per medical team read) Trend x2 -Troponin: 0.02, trended 3 Medications: -Aspirin given in ED -Nitroglycerin/morphine as needed for chest pain (3) UTI (urinary tract infection) ICD Codes: N39.0 - Urinary tract infection, site not specified Status: Acute Plan: Urinalysis on admission shows large leukocyte esterase with 125 WBCs and moderate bacteria -Urine culture pending Bactrim DS 1 tablet twice daily 3 days started on arrival (4) Atrial fibrillation ICD Codes: I48.91 - Unspecified atrial fibrillation Status: Chronic Plan: -Pacemaker in place per chest x-ray -Currently rate controlled Medications: -Continue amiodarone, carvedilol, and Eliquis for anticoagulation (5) Hypertension ICD Codes: I10 - Essential (primary) hypertension Status: Chronic Plan: Medications -Continue home lisinopril and carvedilol -Clonidine 0.1 mg as needed for blood pressure greater than 180/110 (6) Elevated serum creatinine ICD Codes: R79.89 - Other specified abnormal findings of blood chemistry Status: Acute Plan: Per chart review, creatinine baseline roughly 1.1-1.2. -CMP: 1.38 on arrival, 1.4 1:02 dose of Lasix -Avoid nephrotoxic agents -Patient currently fluid overloaded, avoid nonessential fluids -Patient placed on salt and fluid restriction diet (7) GERD (gastroesophageal reflux disease) ICD Codes: K21.9 - Gastro-esophageal reflux disease without esophagitis Status: Chronic Plan: Medications: -Continue Nexium 20 twice a day (8) Colostomy care ICD Codes: Z43.3 - Encounter for attention to colostomy Status: Chronic Plan: -Colostomy on exam without abnormality, currently producing good output. Site does not appear infected and is CDI. -Continue lactobacillus daily (9) FEN/PPX Status: Acute Plan: -Fluids: Restriction to 1500ml daily -Electrolytes: WNL, continue to monitor -Nutrition: Heart healthy diet with fluid and sodium restriction -DVT ppx: Eliquis, SCDs -Prophylaxis: Morphine/nitroglycerin for chest pain, clonidine as needed for blood pressure greater than 180/110, DuoNeb's as needed for shortness of breath , Tessalon Perles as needed for cough Physician Certification 2 Midnight Certification Type: Admission for Inpatient Services Order for Inpatient Services The services are ordered in accordance with Medicare regulations or non- Medicare payer requirements, as applicable. In the case of services not specified as inpatient-only, they are appropriately provided as inpatient services in accordance with the 2-midnight benchmark. Estimated LOS (days): 2 2 days is the estimated time the patient will need to remain in the hospital, assuming treatment plan goals are met and no additional complications. Post-Hospital Plan: Not yet determined Problem Qualifiers (1) Acute exacerbation of congestive heart failure: Qualified Codes: I50.23 - Acute on chronic systolic (congestive) heart failure (2) Chest pain: Qualified Codes: R07.1 - Chest pain on breathing (3) UTI (urinary tract infection): Qualified Codes: N30.00 - Acute cystitis without hematuria (4) Atrial fibrillation: Qualified Codes: I48.2 - Chronic atrial fibrillation (5) Hypertension: Qualified Codes: I10 - Essential (primary) hypertension (6) GERD (gastroesophageal reflux disease): Qualified Codes: K21.9 - Gastro-esophageal reflux disease without esophagitis Jorge French MD Dec 06, 2017 12:19
--- NOTE | 2017-12-06 16:01 | EKG ---
Date Performed: 12/06/2017 Time Performed: 03:05:44 PTAGE: 87 years EKG: A-V sequential pacemaker Pacemaker rhythm - no further analysis Since the previous tracing, no significant change noted Abnormal ECG PREVIOUS TRACING : 12/05/2017 20.34 DOCTOR: Yeni Melendez Interpretating Date/Time 12/06/2017 15:59:30
--- NOTE | 2017-12-06 16:10 | EKG ---
Date Performed: 12/05/2017 Time Performed: 20:34:29 PTAGE: 87 years EKG: ELECTRONIC ATRIAL PACEMAKER ELECTRONIC VENTRICULAR PACEMAKER ABNORMAL RHYTHM ECG PREVIOUS TRACING : 05/29/2017 14.28 Since the prior tracing, the atrial fibrillation has resolv ed, and the rhythm is now AV sequential pacing. DOCTOR: Yeni Melendez Interpretating Date/Time 12/06/2017 16:09:46
--- NOTE | 2017-12-06 17:22 | EKG ---
Date Performed: 12/06/2017 Time Performed: 07:28:27 PTAGE: 87 years EKG: ELECTRONIC ATRIAL PACEMAKER ELECTRONIC VENTRICULAR PACEMAKER ABNORMAL RHYTHM ECG PREVIOUS TRACING : 12/05/2017 20.34 Since the previous tracing, no significant change noted DOCTOR: Meghan Cervantes Interpretating Date/Time 12/06/2017 17:20:20
[2017-12-06] MEDS: FUROSEMIDE 20 MG TAB PO SCH (18:19)
[2017-12-06] MEDS: APIXABAN 2.5 MG TABLET PO SCH (20:27)
[2017-12-06] MEDS: CARVEDILOL 6.25 MG TAB PO SCH (20:27)
[2017-12-07] VITALS (9 sets, daily range): BP systolic 101–141; BP diastolic 55–66; PULSE 60–68; RESP 16–17; TEMP 97.6–98; O2SAT 91–100
[2017-12-07] MEDS: SACUBITRIL/VALSARTAN 24 MG-26 MG TAB PO SCH ×2 (06:04→09:43)
[2017-12-07 08:19] LABS: HEMATOCRIT 33.6 % (35.0-46.0); HEMOGLOBIN 11.2 GM/DL (11.6-15.3); MEAN CELL VOLUME 91.4 FL (80.0-100.0); MEAN CORPUSCULAR HEMOGLOBIN 30.4 PG (27.0-34.0); MEAN CORPUSCULAR HGB CONC 33.2 % (32.0-36.0); MEAN PLATELET VOLUME 8.5 FL (7.0-11.0); PLATELET COUNT 172 TH/MM3 (150-450); RED BLOOD COUNT 3.68 MIL/MM3 (4.00-5.30); RED CELL DISTRIBUTION WIDTH 15.2 % (11.6-17.2); WHITE BLOOD COUNT 5.9 TH/MM3 (4.0-11.0)
[2017-12-07] MEDS: FUROSEMIDE 20 MG TAB PO SCH (09:42)
[2017-12-07] MEDS: LACTOBACILLUS ACIDOPHILUS TAB PO SCH (09:42)
[2017-12-07] MEDS: SULFAMETHOXAZOLE-TRIMETHOPRIM DS 800-160 MG TAB PO SCH (09:43)
[2017-12-07] MEDS: APIXABAN 2.5 MG TABLET PO SCH (09:43)
[2017-12-07] MEDS: AMIODARONE 200 MG TAB PO SCH (09:43)
[2017-12-07] MEDS: PANTOPRAZOLE SOD 20 MG DELAYED RELEASE TAB PO SCH (09:43)
[2017-12-07] MEDS: MAGNESIUM OXIDE 400 MG TAB PO SCH (09:43)
[2017-12-07] MEDS: SODIUM CHLORIDE 0.9% FLUSH 10 ML FLUSH IV FLUSH SCH (09:43)
[2017-12-07] MEDS: CARVEDILOL 6.25 MG TAB PO SCH (09:43)
[2017-12-07] MEDS ORDERED: SACU1TAB PO (13:01)
--- NOTE | 2017-12-07 13:01 | HHI.DCPOC ---
Discharge Care Plan Diagnosis: (1) Acute exacerbation of congestive heart failure Goals to Promote Your Health * To prevent worsening of your condition and complications * To maintain your health at the optimal level Directions to Meet Your Goals Take your medications as prescribed Follow your dietary instruction Follow activity as directed Keep your appointments as scheduled Take your immunizations and boosters as scheduled If your symptoms worsen call your PCP, if no PCP go to Urgent Care Center or Emergency Room Smoking is Dangerous to Your Health. Avoid second hand smoke Call the 24-hour hour crisis hotline for domestic abuse at Cristino Sanchez MD R2 Dec 07, 2017 13:01
[2017-12-07] MEDS ORDERED: SULF1TAB23 PO (13:05)
--- NOTE | 2017-12-07 14:09 | ECHRPT ---
Indication: HEART FAILURE CONCLUSIONS Normal left ventricular size. Mild concentric left ventricular hypertrophy. The overall left ventricular systolic function is normal with an estimated ejection fraction of 55%. Basal inferolateral/posterior wall motion abnormality. A pacemaker/defibrillator wire is noted. The left atrial size is mildly dilated. The right atrial size is mildly dilated. Mild thickening of the mitral valve leaflets. Mild mitral valve regurgitation. Mild mitral annular calcification. Aortic valve sclerosis is present. There is trace tricuspid valve regurgitation. The estimated pulmonary arterial pressure is 39 mmHg. BP: 141 / 63 HR: 60 Rhythm: Sinus MEASUREMENTS (Male / Female) Normal Values Technical Quality:Fair 2D ECHO LV Diastolic Diameter PLAX 5.0 cm 4.2 - 5.9 / 3.9 - 5.3 cm LV Systolic Diameter PLAX 3.4 cm IVS Diastolic Thickness 1.3 cm 0.6 - 1.0 / 0.6 - 0.9 cm LVPW Diastolic Thickness 1.3 cm 0.6 - 1.0 / 0.6 - 0.9 cm LV Relative Wall Thickness 0.5 RV Internal Dim ED PLAX 2.7 cm LVOT Diameter 2.1 cm Aortic Root Diameter 2.8 cm LA Systolic Diameter LX 4.5 cm 3.0 - 4.0 / 2.7 - 3.8 cm M-MODE AV Cusp Separation MM 1.7 cm DOPPLER AV Peak Velocity 175.0 cm/s AV Peak Gradient 12.3 mmHg AV Mean Gradient 5.0 mmHg AV Velocity Time Integral 35.2 cm LVOT Peak Velocity 55.6 cm/s LVOT Peak Gradient 1.2 mmHg LVOT Velocity Time Integral 9.9 cm AV Area Cont Eq vti 1.0 cm AV Area Cont Eq pk 1.1 cm Mitral E Point Velocity 65.2 cm/s Mitral A Point Velocity 112.0 cm/s Mitral E to A Ratio 0.6 LV E' Lateral Velocity 2.7 cm/s Mitral E to LV E' Lateral Ratio 23.9 LV E' Septal Velocity 3.1 cm/s Mitral E to LV E' Septal Ratio 20.9 TR Peak Velocity 268.0 cm/s TR Peak Gradient 28.7 mmHg Right Atrial Pressure 10.0 mmHg Pulmonary Artery Systolic Pressu 38.7 mmHg Right Ventricular Systolic Press 38.7 mmHg PV Peak Velocity 60.2 cm/s PV Peak Gradient 1.4 mmHg FINDINGS LEFT VENTRICLE Normal left ventricular size. Mild concentric left ventricular hypertrophy. The overall left ventricular systolic function is hyperdynamic with an estimated ejection fraction o f 55%. Basal inferolateral/posterior wall motion abnormality. RIGHT VENTRICLE Normal right ventricular size and systolic function. A pacemaker/defibrillator wire is noted. LEFT ATRIUM The left atrial size is mildly dilated. RIGHT ATRIUM The right atrial size is mildly dilated. There is a defibrillator wire present in the right atrial cavity. ATRIAL SEPTUM The interatrial septum not well visualized. AORTA The aortic root and proximal ascending aorta are normal in size on limited imaging. MITRAL VALVE Mild thickening of the mitral valve leaflets. Mild mitral valve regurgitation. Mild mitral annular calcification. AORTIC VALVE Aortic valve sclerosis is present. TRICUSPID VALVE There is trace tricuspid valve regurgitation. The estimated pulmonary arterial pressure is 38.7 mmHg. PULMONARY VALVE Trivial pulmonary valve regurgitation. VESSELS The inferior vena cava was not well visualized. PERICARDIUM No pericardial effusion. Meghan Cervantes MD, FACC (Electronically Signed) Final Date:07 December 2017 14:08
[2017-12-07] MEDS ORDERED: FURO20TA PO (14:45)
[2017-12-07] MEDS ORDERED: OXYGENTANK NAS.CANULA ×2 (14:47→16:49)
--- NOTE | 2017-12-07 15:11 | HHI.FF ---
Face to Face Verification Diagnosis: (1) Acute exacerbation of congestive heart failure (2) Hypoxemia Home Health Nursing Order: Medical education Signs/symptoms of disease process CHF education Oxygen administration education Nursing assessment with vital signs I have seen patient Phoebe Kramer on 12/07/17. My clinical findings support the need for the requested home health care services because: Ltd mobility - disease progression Patient has SOB Med compliance is questionable Limited ability to care for self High risk of falls I certify that my clinical findings support that this patient is homebound because: Poor cardiac reserve Cristino Sanchez MD R2 Dec 07, 2017 15:11
--- NOTE | 2017-12-07 17:16 | HHI.FPPN ---
Subjective Remarks Patient seen and examined this morning by medical team. No acute events overnight per nursing staff. Patient states that she feels back at her baseline and is ready to be discharged home. She continues to have a cough, but does state that it has improved since admission. She denies any chest pain or shortness of breath at this time. Otherwise she has no complaints and denies any fevers, chills, NVD, abdominal pain, or calf tenderness. (Cristino Sanchez MD R2) Objective Vitals Vital Signs Date Time Temp Pulse Resp B/P (MAP) Pulse Ox O2 Delivery O2 Flow Rate FiO2 12/07/17 13:29 4.00 12/07/17 12:00 97.8 61 16 101/55 (70) 94 12/07/17 08:01 60 12/07/17 08:00 97.9 68 16 134/66 (88) 91 12/07/17 04:00 60 12/07/17 04:00 98.0 60 17 141/63 (89) 93 12/07/17 00:05 60 12/07/17 00:01 97.6 60 17 137/63 (87) 93 12/06/17 20:10 66 12/06/17 20:00 97.6 65 17 141/65 (90) 94 I/O 12/06/17 12/06/17 12/06/17 12/07/17 12/07/17 12/07/17 07:00 15:00 23:00 07:00 15:00 23:00 Intake Total 150 ml 320 ml Balance 150 ml 320 ml Intake Oral 150 ml 320 ml # Voids 2 4 (Cristino Sanchez MD R2) Result Diagram: 12/07/17 0720 12/06/17 0229 Imaging GENERAL: Elderly female lying in bed eating breakfast in no acute distress. SKIN: Warm and dry. No rash. HEENT: Atraumatic, normocephalic with extraocular motions intact. No rhinorrhea. No visible lymphadenopathy or jugulovenous distension appreciated. CARDIOVASCULAR: Regular rate and rhythm without obvious murmurs, gallops, or rubs. 2+ pulses in all four extremities. RESPIRATORY: Improved variation bilaterally without obvious CRW. Patient currently on room air without increased work of breathing. Patient able to converse in full complete sentences. GASTROINTESTINAL: Abdomen soft, non-tender, nondistended with positive bowel sounds. 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 No masses appreciated. MUSCULOSKELETAL: No cyanosis or edema. No calf tenderness. NEURO/PSYCH: Afocal. Awake, alert, and oriented x3. Normal speech and judgement. (Cristino Sanchez MD R2) A/P Assessment and Plan Mrs. Kramer is a 87-year-old female presenting to the ED with chief complaint of shortness of breath consistent with acute on chronic CHF exacerbation. Discharge Planning Pending respiratory walk test (Cristino Sanchez MD R2) Attending Attestation Patient independently examined and case discussed with resident physician I have read the above note and agree with the assessment/plan as discussed with me I was involved in all medical decision making for this patient Jorge French MD (Jorge French MD) Problem List: (1) Acute exacerbation of congestive heart failure ICD Codes: I50.9 - Heart failure, unspecified Status: Acute Plan: Chest x-ray shows cardiomegaly with interstitial prominence most characteristic of mild pulmonary edema -BNP: 810 -Troponin 0 0.023 Diuresis: Lasix 40 mg IV 1 given Transition to oral Lasix 20 mg p.o. daily Patient started on Entresto Strict I's and O's Fluid restriction to 1.5 L Monitor daily weights Monitor on telemetry and continuous pulse ox Supplemental oxygen to keep oxygen saturation greater than 93%, wean as tolerated Respiratory walk test pending Echocardiogram 12/07/17: Mild left ventricular hypertrophy with an estimated ejection fraction of 55%. Pacemaker/defibrillator wire noted. Left and right atria mildly dilated. Mild thickening of the mitral valve with mild regurgitation. Aortic valve sclerosis. Trace tricuspid regurgitation. Pulmonary arterial pressure of 39 mmHg. (2) Chest pain ICD Codes: R07.9 - Chest pain, unspecified Status: Resolved Plan: EKG: Paced rhythm of [address] segment or interval abnormalities. ( Per medical team read) Trend x2 -Troponin: 0.02, trended 3 Medications: -Aspirin given in ED -Nitroglycerin/morphine as needed for chest pain (3) UTI (urinary tract infection) ICD Codes: N39.0 - Urinary tract infection, site not specified Status: Acute Plan: Urinalysis on admission shows large leukocyte esterase with 125 WBCs and moderate bacteria -Urine culture with E. coli resistant only to tetracyclines Bactrim DS 1 tablet twice daily 3 days started on arrival, complete at discharge (4) Atrial fibrillation ICD Codes: I48.91 - Unspecified atrial fibrillation Status: Chronic Plan: -Pacemaker in place per chest x-ray -Currently rate controlled Medications: -Continue amiodarone, carvedilol, and Eliquis for anticoagulation (5) Hypertension ICD Codes: I10 - Essential (primary) hypertension Status: Chronic Plan: Medications -Continue home lisinopril and carvedilol -Clonidine 0.1 mg as needed for blood pressure greater than 180/110 (6) Elevated serum creatinine ICD Codes: R79.89 - Other specified abnormal findings of blood chemistry Status: Acute Plan: Per chart review, creatinine baseline roughly 1.1-1.2. -CMP: 1.38 on arrival, 1.4 1:02 dose of Lasix -Avoid nephrotoxic agents -Patient currently fluid overloaded, avoid nonessential fluids -Patient placed on salt and fluid restriction diet (7) GERD (gastroesophageal reflux disease) ICD Codes: K21.9 - Gastro-esophageal reflux disease without esophagitis Status: Chronic Plan: Medications: -Continue Nexium 20 twice a day (8) Colostomy care ICD Codes: Z43.3 - Encounter for attention to colostomy Status: Chronic Plan: -Colostomy on exam without abnormality, currently producing good output. Site does not appear infected and is CDI. -Continue lactobacillus daily (9) FEN/PPX Status: Acute Plan: -Fluids: Restriction to 1500ml daily -Electrolytes: WNL, continue to monitor -Nutrition: Heart healthy diet with fluid and sodium restriction -DVT ppx: Eliquis, SCDs -Prophylaxis: Morphine/nitroglycerin for chest pain, clonidine as needed for blood pressure greater than 180/110, DuoNeb's as needed for shortness of breath , Tessalon Perles as needed for cough (Cristino Sanchez MD R2) Problem Qualifiers (1) Acute exacerbation of congestive heart failure: Qualified Codes: I50.23 - Acute on chronic systolic (congestive) heart failure (2) Chest pain: Qualified Codes: R07.1 - Chest pain on breathing (3) UTI (urinary tract infection): Qualified Codes: N30.00 - Acute cystitis without hematuria (4) Atrial fibrillation: Qualified Codes: I48.2 - Chronic atrial fibrillation (5) Hypertension: Qualified Codes: I10 - Essential (primary) hypertension (6) GERD (gastroesophageal reflux disease): Qualified Codes: K21.9 - Gastro-esophageal reflux disease without esophagitis Cristino Sanchez MD R2 Dec 07, 2017 17:16 Jorge French MD Dec 07, 2017 17:54
== END 2017-12-07 20:39 | disposition home or self-care (01) | DRG 291 ==
LOC: NEPC 17:58 → NEDA 22:07 → N06B 23:10
PROVIDERS: ADMIT Family Medicine; ATTEND Family Medicine
DX: I13.0 Hypertensive heart and chronic kidney disease with heart failure and stage 1 through stage 4 chronic kidney disease, or unspecified chronic kidney disease (principal); I50.23 Acute on chronic systolic (congestive) heart failure; N30.00 Acute cystitis without hematuria; I48.2 Chronic atrial fibrillation; Z79.01 Long term (current) use of anticoagulants; E78.5 Hyperlipidemia, unspecified; I08.3 Combined rheumatic disorders of mitral, aortic and tricuspid valves; N18.9 Chronic kidney disease, unspecified; R07.1 Chest pain on breathing; M19.90 Unspecified osteoarthritis, unspecified site; R53.1 Weakness; I25.10 Atherosclerotic heart disease of native coronary artery without angina pectoris; K21.9 Gastro-esophageal reflux disease without esophagitis; Z43.3 Encounter for attention to colostomy; Z88.1 Allergy status to other antibiotic agents; Z96.643 Presence of artificial hip joint, bilateral; Z95.5 Presence of coronary angioplasty implant and graft; Z85.71 Personal history of Hodgkin lymphoma; I25.2 Old myocardial infarction; Z90.49 Acquired absence of other specified parts of digestive tract; Z95.810 Presence of automatic (implantable) cardiac defibrillator
CPT/HCPCS: 70450; 71045; 80053; 81001; 82550; 82552; 83690; 83735; 83880; 84443; 84484; 85025; 85027; 85610; 85730; 86140; 87077; 87086; 87186; 93005; 93306; 94618; 96374; J1940